=== PATIENT | female | born 1965 | race Caucasian/White ===

== ENCOUNTER 2023-09-12 21:03 | Emergency (ER) | payer OTHER, SELFPAY ==
[2023-09-12 21:08] VITALS: BP 123/69; PULSE 78; RESP 16; TEMP 36.1; O2SAT 98; BMI 32.0
--- NOTE | 2023-09-12 23:03 | CRLHL7_ITS ---
For Patients: As a result of the Century Cures Act, medical imaging exams and procedure reports are released immediately into your electronic medical record. You may view this report before your referring provider. If you have questions, please contact your health care provider. INDICATION: Foot pain, no injury, left foot pain TECHNIQUE: Foot radiograph 3 views left COMPARISON: None FINDINGS: Bone: No acute fractures or aggressive bone lesions are identified. Moderate metatarsus primus varus hallux valgus is noted with Hallux angle measuring 34 degrees. No significant bone proliferation seen over the medial eminence of 1st metatarsal head. A type III tailor`s bunion is present with the 4th-5th intermetatarsal angle measuring 12 degrees. 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 Mild osteoarthritis of the midtarsal joints are noted. No significant ankle effusion is seen. Soft tissue: There are 2 surgical clips seen along the anterior ankle. No radiopaque foreign bodies are seen. IMPRESSION: 1. No acute osseous injuries or abnormalities are noted. Dictated by Sarthak Brown MD @ 09/13/2023 12:44:41 AM Dictated by: Sarthak Brown MD @ 09/13/2023 00:44:46 (Electronically Signed)
--- NOTE | 2023-09-13 00:22 | ED.GENADULT ---
HPI - General Adult General Chief complaint: Lower Extremity Swelling Stated complaint: L foot pain, swollen Time Seen by Provider: 09/12/23 23:03 History of Present Illness HPI narrative: Patient is a 57-year-old woman who started a bike tour yesterday biking 30 miles. She has new cycling shoes and has a large bunion on the left foot. She feels like tissues are too tight and as result she is now having significant pain in the forefoot of her left foot. She is having difficult time placing weight on her foot. She has a very inflamed bunion on the medial aspect of her foot with slight ulceration. No other significant history. Patient is concerned that she may have broken her foot. Related Data Allergies Allergy/AdvReac Type Severity Reaction Status Date / Time Penicillins Allergy Intermediate Rash Verified 09/12/23 21:14 Review of Systems Status of ROS: Reports: 10 or more systems reviewed and unremarkable except as noted in History and below Exam Narrative: Exam Narrative: EXAM GENERAL: Patient appears comfortable and well. EYES: No scleral icterus. LYMPH: No supraclavicular or cervical lymphadenopathy. SKIN: Visible skin seen during exam normal or with benign process only. EXT: Examination of the left foot shows minimal swelling no erythema minor ulcerations last blister on the large bunion. No other neurovascular symptoms. HEART: Regular rate and rhythm with no murmurs, rubs, or gallops. LUNGS: Clear to auscultation bilaterally with no crackles or wheezes. ABD: Soft, non tender, non distended. PSYCH: Good eye contact, speech is not pressured. Const: Vital Signs, click to edit/add: Vital Signs - 24 hr 09/12/23 21:08 Temperature 96.9 F L Pulse Rate [Left P ulse Oximeter] 78 Respiratory Rate 16 Blood Pressure [Ri ght Upper Arm] 123/69 Pulse Oximetry 98 Oxygen Delivery Me thod Room Air Course Course ED Course: Patient seen and examined. X-ray of the left foot ordered. Vital Signs Vital signs: Initial Vital Signs Temperature 96.9 F L 09/12/23 21:08 Temperature Source Temporal Artery Scan 09/12/23 21:08 Pulse Rate 78 09/12/23 21:08 Pulse Rhythm Regular 09/12/23 21:08 Respiratory Rate 16 09/12/23 21:08 Blood Pressure 123/69 09/12/23 21:08 Blood Pressure Mean 87 09/12/23 21:08 Blood Pressure Position Sitting 09/12/23 21:08 Pulse Oximetry 98 09/12/23 21:08 Oxygen Delivery Method Room Air 09/12/23 21:08 Vital Signs Temperature 96.9 F L 09/12/23 21:08 Pulse Rate 78 09/12/23 21:08 Respiratory Rate 16 09/12/23 21:08 Blood Pressure 123/69 09/12/23 21:08 Pulse Oximetry 98 09/12/23 21:08 Oxygen Delivery Method Room Air 09/12/23 21:08 Temperature 96.9 F L 09/12/23 21:08 Pulse Rate 78 09/12/23 21:08 Respiratory Rate 16 09/12/23 21:08 Blood Pressure 123/69 09/12/23 21:08 Pulse Oximetry 98 09/12/23 21:08 Oxygen Delivery Method Room Air 09/12/23 21:08 Medical Decision Making MDM Narrative Medical decision making narrative: Patient presents with left-sided foot pain after day of riding and clip on shoes. She has impressive bunion as well as significant deformity of the left foot as result. She is not having pain in the forefoot. I do not see any fractures but do see chronic changes on her x-ray. She will be treated with Tylenol Motrin ice and rest. I also recommended for primary care follow-up with referral to Podiatry. Radiology x-ray pending. Differential diagnosis includes but not limited due sprain strain fracture dislocation infection. Discharge Plan Discharge Clinical Impression: Acute foot pain Patient Disposition: Home, Self-Care Condition: Stable Additional Instructions: Tylenol Motrin Ice Follow-up with your doctor next week. Activity Level: No Restrictions Discharge Diet: Regular Stand Alone Forms: [facility] Info Instructions
--- OUTSIDE RECORDS SUMMARY | 2023-09-13 00:47 | XMS_ITS | Clinical Summary ---
Author Organization [place] Address [address] [place] [address]. [place] [address] Care Team Providers Care Guidance Secretary Name Role Phone Jostin Kim ALLEN SEWING PATTERN LAYOUT TECHNICIAN Unavailable [phone] Kim Frankel APRN SEWING PATTERN LAYOUT TECHNICIAN Primary Care Provider [phone] Mitra Reaves BI SPECIALIST SEWING PATTERN LAYOUT TECHNICIAN Unavailable [phone] Allergies Active Allergy Reactions Criticality Noted Date Comments Amoxicillin Rash Low 08/14/2015 Low grade fever Penicillins Rash Low 08/14/2015 Low grade fever Seasonal Allergies Itching,Other (See Comments) 12/23/1989 Trace Minerals Cr-Cu-Mn-Zn Hives,Itching 12/24/1979 Medications Medication Sig Dispensed Refills Start Date End Date Status ondansetron (ZOFRAN ODT) 4 MG ODT tabIndications:Left lower quadrant pain Take 1 tablet (4 mg) by mouth every 8 hours as needed for nausea 20 tablet 1 01/15/2023 Active estradiol (ESTRACE) 0.1 MG/GM vaginal creamIndications:Va ginal atrophy Place a small pea-sized amount in the vagina nightly for two weeks, then twice weekly. Please schedule office visit for further refills. 42.5 g 02/23/2023 Active escitalopram (LEXAPRO) 10 MG tabletIndications:R ecurrent major depressive disorder, in full remission (H24) Take 1 tablet (10 mg) by mouth daily *will need appointment for additional refills* 90 tablet 08/11/2023 Active Active Problems Problem Noted Date Diagnosed Date ESTEE (acute kidney injury) (H24) 01/19/2023 Bacteremia 01/19/2023 Ureteral stone with hydronephrosis 01/19/2023 Nephrolithiasis 01/16/2023 Ureterolithiasis 01/15/2023 Urinary tract infection with hematuria, site uns pecified 01/15/2023 Moderate mixed hyperlipidemia not requiring stat in therapy 05/30/2021 Overview: 2021: ASCVD 1.8% History of bilateral knee replacement 05/24/2021 Spondylolisthesis of lumbar region 05/24/2021 Overview: TCO dx'd. MRI Doing PT and chiro Recurrent major depressive d isorder, in full remission (H24) 08/14/2015 Overview: Chronic and lifelong 2021: Lexapro, art therapy History of hysterectomy 07/07/2014 Resolved Problems Problem Noted Date Diagnosed Date Resolved Date CARDIOVASCULAR SCREENING; LD L GOAL LESS THAN 160 11/24/2016 05/24/2021 Encounters Date Type Department Care Team Description 08/10/[address] [address] Kim Frankel APRN SEWING PATTERN LAYOUT TECHNICIAN Refill Request 08/08/2023 MyC Refill [address] [address] Kim Frankel APRN SEWING PATTERN LAYOUT TECHNICIAN Refill Request from Last 3 Months Immunizations Name Administration Dates Next Due COVID-19 12+ () (Pfizer) 01/22/2023 COVID-19 Bivalent 12+ (Pfizer) 10/06/2022 DT (PEDS <7y) 03/30/2004 HEPA 09/28/2007, 8,07/03/2006,2005,11/26/2005 HepB 07/03/2006,12/31/2005,11/26/2005 Influenza (IIV3) PF 01/20/2012,01/23/2011 Influenza Vaccine 18-64 (Flublok) 12/05/2020, Influenza Vaccine >6 months,quad, PF ,12/14/2017,02/25/2017,2015 MMR 11/22/2007 Poliovirus, inactivated (IPV) 11/26/2005 TD,PF 7+ (Tenivac) 03/30/2004 TDAP (Adacel,Boostrix) 10/28/2006,03/30/2004 TDAP Vaccine (Adacel) 12/14/2017 Td (Adult), Adsorbed 10/28/2006 Typhoid IM 11/26/2005 Zoster recombinant adjuvante d (SHINGRIX) 05/24/2021 Family History Medical History Relation Comments Mental Illness Brother bipolar No Known Problems Daughter Depression Father Hyperlipidemia Father Skin Cancer Father Breast Cancer Maternal Aunt 1 maternal aunt Breast Cancer Maternal Aunt 2 Heart Disease Maternal Grandfather Osteoporosis Maternal Grandmother Hyperlipidemia Mother No Known Problems Paternal Aunt Coronary Artery Disease Paternal Grandfather Breast Cancer Paternal Grandmother Cancer Paternal Grandmother Coronary Artery Disease Paternal Grandmother Mental Illness Paternal Uncle uncle No Known Problems Sister 2 Colon Cancer No family hx of Endometrial Cancer No family hx of Glaucoma No family hx of Hereditary Breast and Ovarian Cancer Syndrome No family hx of Macular Degeneration No family hx of Ovarian Cancer No family hx of Relation Status Comments Brother Alive Daughter Father Maternal Aunt 1 Other Maternal Aunt 2 Maternal Grandfather Maternal Grandmother Mother Alive Paternal Aunt Paternal Grandfather Paternal Grandmother Paternal Uncle Other Sister 1 Alive Sister 2 Social History Tobacco Use Types Packs/Day Years Used Date Smoking Tobacco: Never Passive Smoke Exposure: Current Smokeless Tobacco: Never Tobacco Cessation:Counseling Given: Not Answered Alcohol Use Standard Drinks/Week Comments Yes 0 (1 standard drink = 0.6 oz pur e alcohol) 1/week to 1/month PHQ-2 Answer Date Recorded PHQ-2 Score 0 03/05/2023 Adolescent Education Answer Date Record ed Getting School Help Needed Not on file 12/29 Food Insecurity Answer Date Recorded Within the past 12 months, d id you worry that your food would run out before you got money to buy more? No 01/15/2023 Within the past 12 months, d id the food you bought just not last and you didn? t have money to get more? No 01/15/2023 Housing Stability Answer Date Recorded Do you have housing? Yes 01/15/2023 Are you worried about losing your housing? No 01/15/2023 Financial Resource Strain Answer Date R ecorded Within the past 12 months, h ave you or your family members you live with been unable to get utilities (heat, electricity) when it was really needed? No 01/15/2023 Transportation Needs Answer Date Record ed Within the past 12 months, h as lack of transportation kept you from medical appointments, getting your medicines, non-medical meetings or appointments, work, or from getting things that you need? No 01/15/2023 Interpersonal Safety Answer Date Record ed Do you feel physically and e motionally safe where you currently live? Yes 01/22/2023 Within the past 12 months, h ave you been hit, slapped, kicked or otherwise physically hurt by someone? No 01/22/2023 Within the past 12 months, h ave you been humiliated or emotionally abused in other ways by your partner or ex-partner? No 01/22/2023 Sex and Gender Information Value Date Recorded Sex Assigned at Female 05/03/2020 6:11 PM WILDLIFE SCIENCE PROFESSOR Gender Identity Female 05/03/2020 6:11 PM WILDLIFE SCIENCE PROFESSOR Sexual Orientation Straight 05/03/2020 6: 11 PM WILDLIFE SCIENCE PROFESSOR Last Filed Vital Signs Vital Sign Reading Time Taken Comments Blood Pressure 96/74 02/02/2023 11:02 AM WILDLIFE SCIENCE PROFESSOR Pulse 71 02/02/2023 11:15 AM WILDLIFE SCIENCE PROFESSOR Temperature 35.9 ??C (96.7 ??F) 02/02/2023 11:[address] Respiratory Rate 16 02/02/2023 11:02 AM WILDLIFE SCIENCE PROFESSOR Oxygen Saturation 92% 02/02/2023 11:15 AM WILDLIFE SCIENCE PROFESSOR Inhaled Oxygen Concentration - - Weight 76.7 kg (169 lb) 03/05/2023 8:42 AM WILDLIFE SCIENCE PROFESSOR Height 157.5 cm (5' 2) 03/05/2023 8:42 AM WILDLIFE SCIENCE PROFESSOR Body Mass Index 30.91 03/05/2023 8:42 AM WILDLIFE SCIENCE PROFESSOR Plan of Treatment Upcoming Encounters Date Type Department Care Team (Late st Contact Info) Description 10/09/2023 1:00 PM CDT [facility] [address] [place] [phone] Kim Frankel APRN SEWING PATTERN LAYOUT TECHNICIAN [address] [place] [address] Health Maintenance Due Date Last Done Comments CT COLONOGRAPHY 1966 FLEX SIG 1966 sDNA (Cologuard) 1966 IPV IMMUNIZATION (2 of 3 - Adult catch-up series) 12/24/2005 11/26/2005 FIT 02/05/2020 02/04/2019, 11/29, 12/04/2016 MAMMO SCREENING 02/05/2020 02/04/2018, 10/30, 10/15/2015, Additional history exists ZOSTER IMMUNIZATION (2 of 2) 07/19/2021 05/24/2021 PHQ-9 04/08/2023 10/06/2022, 07, 05/24/2021, Additional history exists ANNUAL REVIEW OF HM ORDERS 10/07/2023 10/06/2022, LIPID 10/07/2023 10/06/2022, 05/01, 01/25/2019, Additional history exists YEARLY PREVENTIVE VISIT 10/07/2023 10/07/19 23, 05/24/2021, 01/25/2019, Additional history exists GLUCOSE 01/22/2026 01/22/2023, 12/29, 01/18/2023, Additional history exists ADVANCE CARE PLANNING 05/24/2026 05/24/2021 , 12/24/2020, 10/15/2020 DTAP/TDAP/TD IMMUNIZATION (5 - Td or Tdap) 12/15/2027 12/14/2017, 10/28/2006, 10/28/2006, Additional history exists COLONOSCOPY 06/07/2031 06/06/2021 COLORECTAL CANCER SCREENING 06/07/2031 HEPATITIS B IMMUNIZATION Completed 007, 12/31/2005, 11/26/2005 PAP Discontinued 01/12/2009 HIV SCREENING Completed 01/25/2019 DEPRESSION ACTION PLAN Completed 05/09/2020, 2020 HEPATITIS C SCREENING Completed 05/24/2021 INFLUENZA VACCINE Completed 01/19/2023, , 01/25/2019, Additional history exists COVID-19 Vaccine Completed 01/22/2023, 12/2022, 11/01/2021, Additional history exists HPV IMMUNIZATION Aged Out No longer e ligible based on patient's age to complete this topic MENINGITIS IMMUNIZATION Aged Out No l onger eligible based on patient's age to complete this topic Pneumococcal Vaccine: Pediatrics (0 to 5 Years) and At-Risk Patients (6 to 64 Years) Aged Out No longer eligible based on patient's age to complete this topic RSV MONOCLONAL ANTIBODY Aged Out No l onger eligible based on patient's age to complete this topic Medical Devices Implanted Type Area Psych Assistant Device Identifier Shelf Expiration Date Model / Serial / Lot Stent, Ureteral, 4.8fr X 24cm, Hydroplus Coating, Without Wire, Percuflex Plus - [id number] Implanted:Qty: 1 on 02/02/2023 by Alton Reynolds MD at [facility] Stent Left: Ureter 09/30/2025 [id number] / / [id number] Explanted Type Area Psych Assistant Device Identifier Shelf Expiration Date Model / Serial / Lot Stent Ureteral Percuflex Plus [id number] - Sn/A Implanted:Qty: 1 on 01/16/2023 by Batsheva Myers MD at [facility] Explanted:Qty: 1 on 02/02/2023 by Alton Reynolds MD at [facility] Stent [employer] [id number] 07/08/2025 [id number] / N/A / [id number] Procedures Procedure Name Priority Date/Time Associated Diagnosis Comments BASIC METABOLIC PANEL Routine 01/22/2023 12:07 PM CDT Preop general physical exam LIPID REFLEX TO DIRECT LDL PANEL Routine 10/06/2022 3:28 PM CDT Moderate mixed hyperlipidemia not requiring statin therapy COLONOSCOPY - HIM SCAN 06/06/2021 12:00 AM WILDLIFE SCIENCE PROFESSOR HEPATITIS C SCREEN REFLEX TO HCV RNA QUANT AND GENOTYPE Routine 05/24/2021 2:16 PM WILDLIFE SCIENCE PROFESSOR Need for hepatitis C screening test FECAL COLORECTAL CANCER SCREEN FIT Routine 02/04/2019 8:00 AM WILDLIFE SCIENCE PROFESSOR Screen for colon cancer HIV ANTIGEN ANTIBODY COMBO Routine 01/25/2019 3:23 PM CDT Well adult health check MA SCREENING BILATERAL W/ CLIVE Routine 02/04/2018 8:47 AM WILDLIFE SCIENCE PROFESSOR Encounter for screening mammogram for breast cancer GYNECOLOGIC CYTOLOGY Routine 01/12/2009 8:55 AM CDT from Last 3 Months or Most Recently Relevant to Health Maintenance Results * Basic metabolic panel (Ca, Cl, CO2, Creat, Gluc, K, Na, BUN) (01/22/2023 12:07 PM CDT) Pathologist [facility] Sodium 137 135 - 145 mmol/L 01/23/2023 9:16 AM CDT [facility] Comment:Reference intervals for this test were updated on 12/23/2022 to more accurately reflect our healthy population. There may be differences in the flagging of prior results with similar values performed with this method. Interpretation of those prior results can be made in the context of the updated reference intervals. Potassium 5.0 3.4 - 5.3 mmol/L 01/23/2023 9:16 AM CDT [facility] Chloride 102 98 - 107 mmol/L 01/23/2023 9:16 AM CDT [facility] Carbon Dioxide (CO2) 22 22 - 29 mmol/L 01/23/2023 9:16 AM CDT [facility] Anion Gap 13 7 - 15 mmol/L 01/23/2023 9:16 AM CDT [facility] Urea Nitrogen 13.6 6.0 - 20.0 mg/dL 01/23/2023 9:16 AM CDT [facility] Creatinine 0.94 0.51 - 0.95 mg/dL 01/23/2023 9:16 AM CDT [facility] GFR Estimate 71 >60 mL/min/1. 73m2 01/23/2023 9:16 AM CDT [facility] Calcium 9.0 8.6 - 10.0 mg/dL 01/23/2023 9:16 AM CDT [facility] Glucose 92 70 - 99 mg/dL 01/23/2023 9:16 AM CDT [facility] Blood BLOOD SPECIMEN / Unknown Venipuncture / Unknown 01/22/2023 12:07 PM CDT 01/22/2023 12:07 PM CDT William Tesfaye MD LAB - BLOOD ORDERABL ES [facility] Core Lab [address] [facility], [address] [address], [facility] [phone] * (ABNORMAL) Lipid panel reflex to direct LDL Non-fasting (10/06/2022 3:28 PM CDT) Cholesterol 214(H) <200 mg/dL 10/06/2022 8:51 PM CDT [facility] Triglycerides 180(H) <150 mg/dL 10/06/2022 8:51 PM CDT [facility] Direct Measure HDL 35(L) >=50 mg/dL 10/06/2022 8:51 PM CDT [facility] LDL Cholesterol Calculated 143(H) <=100 mg/dL 10/06/2022 8:51 PM CDT [facility] Non HDL Cholesterol 179(H) <130 mg/dL 10/06/2022 8:51 PM CDT [facility] Blood BLOOD SPECIMEN / Unknown Venipuncture / Unknown 10/06/2022 3:28 PM CDT 10/06/2022 3:28 PM CDT Narrative [facility] - 10/06/2022 8:51 PM CDT Cholesterol Desirable: ??<200 mg/dL Triglycerides Normal: ??Less than 150 mg/dL Borderline High: ??150-199 mg/dL High: ??200-499 mg/dL Very High: ??Greater than or equal to 500 mg/dL Direct Measure HDL Female: ??Greater than or equal to 50 mg/dL Male: ??Greater than or equal to 40 mg/dL LDL Cholesterol Desirable: ??<100mg/dL Above Desirable: ??100-129 mg/dL Borderline High: ??130-159 mg/dL High: ??160-189 mg/dL Very High: ??>= 190 mg/dL Non HDL Cholesterol Desirable: ??130 mg/dL Above Desirable: ??130-159 mg/dL Borderline High: ??160-189 mg/dL High: ??190-219 mg/dL Very High: ??Greater than or equal to 220 mg/dL Kim Frankel APRN, CNP LAB - BLOOD ORDERAB LES [facility] [place] Core Lab [address] [facility], [address] [address], [facility] [phone] * COLONOSCOPY - HIM SCAN (06/06/2021 12:00 AM WILDLIFE SCIENCE PROFESSOR) 06/06/2021 Provider Outside PROCEDURES * Hepatitis C Screen Reflex to HCV RNA Quant and Genotype (05/24/2021 2:16 PM WILDLIFE SCIENCE PROFESSOR) Pathologist [facility] Hepatitis C Antibody Nonreactive Nonreactive 05/25/2021 9:43 AM WILDLIFE SCIENCE PROFESSOR SPECIALTY CORE/PROT/EN DO Blood STRUCTURE OF RIGHT UPPER LIMB / Unknown Venipuncture / Unknown 05/24/2021 2:16 PM WILDLIFE SCIENCE PROFESSOR 05/24/2021 2:16 PM WILDLIFE SCIENCE PROFESSOR Narrative SPECIALTY CORE/PROT/ENDO - 05/25/2021 9:43 AM WILDLIFE SCIENCE PROFESSOR Assay performance characteristics have not been established for newborns, infants, and children. Trish Mendoza MD LAB - BLOOD ORDERAB LES Performing Organization Address City/[facility]/ZIP Co de Phone Number SPECIALTY CORE/PROT/ENDO Specialty Core/Prot/Endo [address] [facility] [address] [facility], [address] [address], [facility] [phone] * Fecal colorectal cancer screen FIT - Future (S+30) (02/04/2019 8:00 AM WILDLIFE SCIENCE PROFESSOR) Pathologist [facility] Occult Blood Scn FIT Negative NEG^Negati ve 02/11/2019 6:10 PM WILDLIFE SCIENCE PROFESSOR [facility] Stool specimen (specimen) 02/04/2019 8:00 AM WILDLIFE SCIENCE PROFESSOR 02/11/2019 1:44 PM WILDLIFE SCIENCE PROFESSOR Feli Smith APRN SEWING PATTERN LAYOUT TECHNICIAN LAB - STOOLS ORDERABLES [facility] [address] [place] [address] * HIV Screening (01/25/2019 3:23 PM CDT) HIV Antigen Antibody Combo Nonreactive NR^Nonrea ctive 01/26/2019 12:02 PM CDT [facility] Comment:HIV-1 p24 Ag & HIV-1 /HIV-2 Ab Not Detected Blood specimen (specimen) 01/25/2019 3:23 PM CDT 01/25/2019 3:24 PM CDT Feli Smith BI SPECIALIST SEWING PATTERN LAYOUT TECHNICIAN LAB - BLOOD ORDERABLES [address] [address] * MA Screen Bilateral w/Clive (02/04/2018 8:47 AM WILDLIFE SCIENCE PROFESSOR) Anatomical Region Laterality Modality Breast Bilateral Mammography Impressions 02/05/2018 2:36 PM WILDLIFE SCIENCE PROFESSOR IMPRESSION: BI-RADS CATEGORY: 1 - ??NEGATIVE. RECOMMENDED FOLLOW-UP: Annual Mammography Based on the patient history questionnaire completed prior to the mammogram, the NCI risk calculator and the NCCN indications for genetic screening, the patient may be at an increased risk for breast cancer and/or have an indication for genetic screening. ??She has been sent a letter informing her of this and a phone number to schedule an appointment in the [facility] if she so desires. Results to be sent to patient. I have personally reviewed the examination and initial interpretation and I agree with the findings. MOISES BRITT MD Narrative 02/05/2018 2:36 PM WILDLIFE SCIENCE PROFESSOR SCREENING MAMMOGRAM, BILATERAL, DIGITAL, with CAD and TOMOSYNTHESIS HISTORY: Asymptomatic, routine screening. History of prior breast biopsy. History of 2 close relatives with breast cancer, the youngest diagnosed at age 45. Previously documented breast cysts. COMPARISON: 11/26/2016, 10/15/2015, 08/21/2015, 05/30/2014, 03/05/2011, 06/05/2010 TECHNIQUE: Routine screening mammogram with CAD and tomosynthesis. BREAST DENSITY: Heterogeneously dense. FINDINGS: No significant change. Procedure Note Moises Britt MD - 02/05/2018 SCREENING MAMMOGRAM, BILATERAL, DIGITAL, with CAD and TOMOSYNTHESIS HISTORY: Asymptomatic, routine screening. History of prior breast biopsy. History of 2 close relatives with breast cancer, the youngest diagnosed at age 45. Previously documented breast cysts. COMPARISON: 11/26/2016, 10/15/2015, 08/21/2015, 05/30/2014, 03/05/2011, 06/05/2010 TECHNIQUE: Routine screening mammogram with CAD and tomosynthesis. BREAST DENSITY: Heterogeneously dense. FINDINGS: No significant change. IMPRESSION: BI-RADS CATEGORY: 1 - NEGATIVE. RECOMMENDED FOLLOW-UP: Annual Mammography Based on the patient history questionnaire completed prior to the mammogram, the NCI risk calculator and the NCCN indications for genetic screening, the patient may be at an increased risk for breast cancer and/or have an indication for genetic screening. She has been sent a letter informing her of this and a phone number to schedule an appointment in the [facility] if she so desires. Results to be sent to patient. I have personally reviewed the examination and initial interpretation and I agree with the findings. MOISES BRITT MD Feli Smith APRN SEWING PATTERN LAYOUT TECHNICIAN IMG MAMMOGRA PHY ORDERABLES * Gynecologic Cytology (PAP Smear) (01/12/2009 8:55 AM CDT) 01/12/2009 8:55 AM CDT 01/12/2009 8:55 AM CDT [facility] - 01/12/2009 8:55 AM CDT [id number] ? Slide(s) 1 Specimen Type: ??SUREPATH SCREEN SOURCE: VAGINAL PAP SMEAR INTERPRETATION: NEGATIVE FOR SQUAMOUS INTRAEPITHELIAL LESION OR MALIGNANCY Based on Pap interpretation, HPV reflex test not performed. No Endocervical Cells Present; Vaginal Source Satisfactory for Interpretation PATIENT HISTORY Reflex HPV.................: YES IF ABNORMAL High Risk..................: NO LMP/Menopause Date.........: unknown Abnormal Bleeding:.........: NO Pt Status..................: NOT APPLICABLE Control/Hormones.....: NONE Previous Normal/Date.......: 2005 Prev. Abn Date/Dx..........: Cervical Appearance........: S. [place] CT(ASCP) ? (electronically signed) Performed at: ??[facility] [address] [place] [address] Date Received: 01/12/09 ?Date Completed: 01/18/09 ??ABN Complete: [facility] [address] [place] [id number], [facility] [address] [place] [id number] from Last 3 Months or Most Recently Relevant to Health Maintenance Advance Directives For more information, please contact: [phone] * Full Code (Latest Code Status on File) Date Activated Date Inactivated Comments 01/16/2023 8:40 AM 01/19/2023 3:19 PM All basic and advanced life-sustaining interventions are performed as appropriate Question Answer Comments Code status determined by: Discussion with cecily nt/ legal decision maker * Full Code Date Activated Date Inactivated Comments 01/15/2023 11:23 PM 01/16/2023 8:40 AM All basic and advanced life-sustaining interventions are performed as appropriate Question Answer Comments Code status determined by: Discussion with patie nt/ legal decision maker Care Teams Guidance Secretary Relationship Specialty Start Date End Date Kim Frankel APRN SEWING PATTERN LAYOUT TECHNICIAN [address] [place] [address] PCP - General Nurse Practitioner Primary Care 01/15/23 iKm Frankel APRN SEWING PATTERN LAYOUT TECHNICIAN [address] [place] [address] Assigned PCP 11/22/22 Mitra Reaves APRN SEWING PATTERN LAYOUT TECHNICIAN [address] [place] [address], [facility] [address] [place] [address] Assigned Surgical Provider 04/23/23
--- OUTSIDE RECORDS SUMMARY | 2023-09-13 00:48 | XMS_ITS | Encounter Summary ---
Author Organization [facility] Address [address] [place] [address]. [place] [address] Care Team Providers Care Web Coordinator Name Role Phone Trish Mendoza MD Primary Care Provider [phone] Trish Mendoza MD Unavailable [phone] Kim Frankel APRN CLAIMS ASSISTANT Unavailable [phone] Kim Frankel APRN, CNP Primary Care Provider [phone] Kim Frankel APRN CLAIMS ASSISTANT Unavailable [phone] Mitra Reaves INFORMATION SYSTEMS TECHNICIAN CLAIMS ASSISTANT Unavailable [phone] Encounter Details Date Type Department Care Team (Late st Contact Info) Description 07/04/2022 MyC Medical Advice [address] [address] Caterina Burroughs, CIELO Social History Tobacco Use Types Packs/Day Years Used Date Smoking Tobacco: Never Smokeless Tobacco: Never Alcohol Use Standard Drinks/Week Comments Yes 0 (1 standard drink = 0.6 oz pur e alcohol) 1/week to 1/month PHQ-2 Answer Date Recorded PHQ-2 Score 2 05/24/2021 Sex and Gender Information Value Date Recorded Sex Assigned at Female 05/03/2020 6:11 PM LINING CEMENTER Gender Identity Female 05/03/2020 6:11 PM LINING CEMENTER Sexual Orientation Straight 05/03/2020 6: 11 PM LINING CEMENTER documented as of this encounter Plan of Treatment Upcoming Encounters Date Type Department Care Team (Late st Contact Info) Description 10/09/2023 1:00 PM CDT Office Visit [facility] [address] [place] [address] Kim Frankel APRN CLAIMS ASSISTANT [address] [place] [address] documented as of this encounter Visit Diagnoses Not on filedocumented in this encounter Additional Health Concerns Infection Onset Date Last Indicated Resolved Time Rule Out C-difficile 01/22/2023 01/24/2023 023 4:38 PM CDT Assessment Noted Time PHQ-9 Depression Total Score: 5 05/25/19 22 7:02 AM LINING CEMENTER documented as of this encounter Care Teams Web Coordinator Relationship Specialty Start Date End Date Trish Mendoza MD PCP - General Family Medicine 05/24/21 01/14/23 Kim Frankel APRN CLAIMS ASSISTANT [address] [place] [address] PCP - General Nurse Practitioner Primary Care 01/15/23 Trish Mendoza MD [address] [place] [id number] Assigned PCP 06/02/21 11/21/22 Kim Frankel APRN CLAIMS ASSISTANT [address] [place] [address] Assigned PCP 11/22/22 Kim Frankel APRN CLAIMS ASSISTANT [address] [place] [address] Assigned Pain Medication Provider 01/17/23 04/22/23 Mitra Reaves APRN CLAIMS ASSISTANT [address] [place] [address], [facility] [address] [place] [address] Assigned Surgical Provider 04/23/23 documented as of this encounter
--- OUTSIDE RECORDS SUMMARY | 2023-09-13 00:48 | XMS_ITS | Encounter Summary ---
Author Organization [facility] Address [address] [place] [address]. [place] [address] Care Team Providers Care Bulb Inspector Name Role Phone Feli Holguin MD Unavailable [phone] Trish Mendoza MD Primary Care Provider Trish Mendoza MD Unavailable Kim Frankel APRN SCORING MACHINE OPERATOR Unavailable Kim Frankel APRN SCORING MACHINE OPERATOR Primary Care Provider Kim Frankel APRN SCORING MACHINE OPERATOR Unavailable [phone] Mitra Reaves PHOTOGRAPH DEVELOPER SCORING MACHINE OPERATOR Unavailable [phone] Encounter Details Date Type Department Care Team (Late st Contact Info) Description 09/17/2021 [facility] Medical Advice [facility] [address] [place] [phone] Trish Mendoza MD [address] [address] Social History Tobacco Use Types Packs/Day Years Used Date Smoking Tobacco: Never Smokeless Tobacco: Never Alcohol Use Standard Drinks/Week Comments Yes 0 (1 standard drink = 0.6 oz pur e alcohol) 1/week to 1/month PHQ-2 Answer Date Recorded PHQ-2 Score 2 05/24/2021 Sex and Gender Information Value Date Recorded Sex Assigned at Female 05/03/2020 6:11 PM TOLL MECHANIC Gender Identity Female 05/03/2020 6:11 PM TOLL MECHANIC Sexual Orientation Straight 05/03/2020 6: 11 PM TOLL MECHANIC documented as of this encounter Plan of Treatment Upcoming Encounters Date Type Department Care Team (Late st Contact Info) Description 10/09/2023 1:00 PM CDT Office Visit [facility] [place] [address]0 [place] [address] Kim Frankel APRN SCORING MACHINE OPERATOR 1390 [place] [address] documented as of this encounter Visit Diagnoses Not on filedocumented in this encounter Additional Health Concerns Infection Onset Date Last Indicated Resolved Time Rule Out C-difficile 01/22/2023 01/24/2023 023 4:38 PM CDT Assessment Noted Time PHQ-9 Depression Total Score: 5 05/25/19 7:02 AM TOLL MECHANIC documented as of this encounter Care Teams Bulb Inspector Relationship Specialty Start Date End Date Trish Mendoza MD [address] [place] [address] [address] [place] [address] PCP - General Family Medicine 05/24/21 01/14/23 Kim Frankel APRN SCORING MACHINE OPERATOR [address] [place] [address] PCP - General Nurse Practitioner Primary Care 01/15/23 Feli Holguin MD [address] [place] [address] [address] [place] [address] Assigned OBGYN Provider 08/19/20 02/14/22 Trish Mendoza MD 2[address] [facility] 200 [place] [address] Assigned PCP 06/02/21 11/21/22 Kim Frankel APRN SCORING MACHINE OPERATOR [address] [place] [address] Assigned PCP 11/22/22 Kim Frankel APRN SCORING MACHINE OPERATOR [address] [place], [place] [id number] Assigned Pain Medication Provider 01/17/23 04/22/23 Mitra Reaves APRN SCORING MACHINE OPERATOR [address] [place] [address], [facility] [address] [place] [address] Assigned Surgical Provider 04/23/23 documented as of this encounter
--- OUTSIDE RECORDS SUMMARY | 2023-09-13 00:48 | XMS_ITS | Encounter Summary ---
Author Organization [facility] Address [address] [place] [address]. [place] [address] Care Team Providers Care Home Lighting Adviser Name Role Phone Feli Holguin MD Unavailable [phone] Trish Mendoza MD Primary Care Provider Trish Mendoza MD Unavailable [phone] Kim Frankel APRN DIRECTOR PROJECT MANAGEMENT Unavailable [phone] Kim Frankel APRN DIRECTOR PROJECT MANAGEMENT Primary Care Provider Kim Frankel APRN DIRECTOR PROJECT MANAGEMENT Unavailable [phone] Mitra Reaves HEAVY EQUIPMENT OPERATOR DIRECTOR PROJECT MANAGEMENT Unavailable [phone] Encounter Details Date Type Department Care Team (Late st Contact Info) Description 08/27/2021 [facility] [address] [phone] Cierra Gillis MA Social History Tobacco Use Types Packs/Day Years Used Date Smoking Tobacco: Never Smokeless Tobacco: Never Alcohol Use Standard Drinks/Week Comments Yes 0 (1 standard drink = 0.6 oz pur e alcohol) 1/week to 1/month PHQ-2 Answer Date Recorded PHQ-2 Score 2 05/24/2021 Sex and Gender Information Value Date Recorded Sex Assigned at Female 05/03/2020 6:11 PM TRAINING AND DOCUMENTATION SPECIALIST Gender Identity Female 05/03/2020 6:11 PM TRAINING AND DOCUMENTATION SPECIALIST Sexual Orientation Straight 05/03/2020 6: 11 PM TRAINING AND DOCUMENTATION SPECIALIST documented as of this encounter Plan of Treatment Upcoming Encounters Date Type Department Care Team (Late st Contact Info) Description 10/09/2023 1:00 PM CDT Office Visit [facility] [address] [place] [address] Kim Frankel APRN DIRECTOR PROJECT MANAGEMENT [address] [place] [address] documented as of this encounter Visit Diagnoses Not on filedocumented in this encounter Additional Health Concerns Infection Onset Date Last Indicated Resolved Time Rule Out C-difficile 01/22/2023 01/24/2023 023 4:38 PM CDT Assessment Noted Time PHQ-9 Depression Total Score: 5 05/25/19 22 7:02 AM TRAINING AND DOCUMENTATION SPECIALIST documented as of this encounter Care Teams Home Lighting Adviser Relationship Specialty Start Date End Date Trish Mendoza MD [address] [facility] 700 [place] [address] PCP - General Family Medicine 05/24/21 01/14/23 Kim Frankel APRN DIRECTOR PROJECT MANAGEMENT 139[address] [place] [address] PCP - General Nurse Practitioner Primary Care 01/15/23 Feli Holguin MD [address] [facility] 700 [place] [address] Assigned OBGYN Provider 08/19/20 02/14/22 Trish Mendoza MD [address] [facility] 200 [place] [address] Assigned PCP 06/02/21 11/21/22 Kim Frankel APRN DIRECTOR PROJECT MANAGEMENT [address] [place] [address] Assigned PCP 11/22/22 Kim Frankel APRN DIRECTOR PROJECT MANAGEMENT [address] [place] [address] Assigned Pain Medication Provider 01/17/23 04/22/23 Mitra Reaves, TIFFANY DIRECTOR PROJECT MANAGEMENT [address] [place] [address], [facility] [address] [place] [address] Assigned Surgical Provider 04/23/23 documented as of this encounter
--- OUTSIDE RECORDS SUMMARY | 2023-09-13 00:48 | XMS_ITS | Encounter Summary ---
Author Organization [facility] Address [address] [place] [address]. [place] [address] Care Team Providers Care Plisse Machine Operator Helper Name Role Phone Feli Holguin MD Unavailable [phone] Lakia Lima CNP Unavailable Trish Mendoza MD Primary Care Provider [phone] Trish Mendoza MD Unavailable [phone] Kim Frankel APRN HUNTING SALES LEADER Unavailable Kim Frankel APRN HUNTING SALES LEADER Primary Care Provider Kim Frankel APRN HUNTING SALES LEADER Unavailable [phone] Mitra Reaves APRN HUNTING SALES LEADER Unavailable [phone] Encounter Details Date Type Department Care Team (Late st Contact Info) Description 05/31/2021 [facility] Medical Advice [facility] [address] [facility] [address] [place] [phone] Marium Cai, CIELO Social History Tobacco Use Types Packs/Day Years Used Date Smoking Tobacco: Never Smokeless Tobacco: Never Alcohol Use Standard Drinks/Week Comments Yes 0 (1 standard drink = 0.6 oz pur e alcohol) 1/week to 1/month PHQ-2 Answer Date Recorded PHQ-2 Score 2 05/24/2021 Sex and Gender Information Value Date Recorded Sex Assigned at Female 05/03/2020 6:11 PM DYE MACHINE OPERATOR Gender Identity Female 05/03/2020 6:11 PM DYE MACHINE OPERATOR Sexual Orientation Straight 05/03/2020 6: 11 PM DYE MACHINE OPERATOR COVID-19 Exposure Response Date Recorded In the last month, have you been in contact with someone who was confirmed or suspected to have Coronavirus / COVID-19? No / Unsure 06/03/2021 10:35 AM DYE MACHINE OPERATOR documented as of this encounter Plan of Treatment Upcoming Encounters Date Type Department Care Team (Late st Contact Info) Description 10/09/2023 1:00 PM CDT Office Visit [facility] [address] [place] [address] Kim Frankel APRN HUNTING SALES LEADER [address] [place] [address] documented as of this encounter Visit Diagnoses Not on filedocumented in this encounter Additional Health Concerns Infection Onset Date Last Indicated Resolved Time Rule Out C-difficile 01/22/2023 01/24/2023 023 4:38 PM CDT Assessment Noted Time PHQ-9 Depression Total Score: 5 05/25/19 22 7:02 AM DYE MACHINE OPERATOR documented as of this encounter Care Teams Plisse Machine Operator Helper Relationship Specialty Start Date End Date Trish Mendoza MD 1415 [place] [address] PCP - General Family Medicine 05/24/21 01/14/23 Kim Frankel APRN HUNTING SALES LEADER 139[address] [place] [address] PCP - General Nurse Practitioner Primary Care 01/15/23 Feli Holguin MD [address] [facility] 700 [place], [place] [address] Assigned OBGYN Provider 08/19/20 02/14/22 Lakia Lima CNP 14[address] [place] [address] Assigned PCP 03/24/21 06/01/21 Trish Mendoza MD [address] [address] Assigned PCP 06/02/21 11/21/22 Kim Frankel APRN HUNTING SALES LEADER [address] [place] [address] Assigned PCP 11/22/22 Kim Frankel APRN HUNTING SALES LEADER [address] [place] [address] Assigned Pain Medication Provider 01/17/23 04/22/23 Mitra Reaves APRN HUNTING SALES LEADER [address] [place] [address], [facility] 6[address] [place] [address] Assigned Surgical Provider 04/23/23 documented as of this encounter
--- OUTSIDE RECORDS SUMMARY | 2023-09-13 00:48 | XMS_ITS | Encounter Summary ---
Author Organization [facility] Address [address] [place] [address]. [place] [address] Care Team Providers Care Adoption Social Worker Name Role Phone Jostin Kim ALLEN DISPATCH ASSOCIATE Unavailable [phone] Kim Frankel APRN DISPATCH ASSOCIATE Primary Care Provider [phone] Kim Frankel APRN DISPATCH ASSOCIATE Unavailable [phone] Mitra Reaves CUSTOMER SUPPORT PROFESSIONAL DISPATCH ASSOCIATE Unavailable Encounter Details Date Type Department Care Team (Late st Contact Info) Description 01/31/2023 [facility] Medical Advice [address] [address] Andrés Garvey MD [address] [place] [id number] Social History Tobacco Use Types Packs/Day Years Used Date Smoking Tobacco: Never Passive Smoke Exposure: Current Smokeless Tobacco: Never Alcohol Use Standard Drinks/Week Comments Yes 0 (1 standard drink = 0.6 oz pur e alcohol) 1/week to 1/month PHQ-2 Answer Date Recorded PHQ-2 Score 0 10/06/2022 Adolescent Education Answer Date Record ed Getting [...] Sex Assigned at Female 05/03/2020 6:11 PM KILN PACKER Gender Identity Female 05/03/2020 6:11 PM KILN PACKER Sexual Orientation Straight 05/03/2020 6: 11 PM KILN PACKER documented as of this encounter Miscellaneous Notes * Telephone Encounter - Veronique Cardoso CMA - 02/03/2023 6:41 AM KILN PACKER FYI PACKER documented in this encounter Plan of Treatment Upcoming Encounters Date Type Department Care Team (Late st Contact Info) Description 10/09/2023 1:00 PM CDT Office Visit [facility] [address] [place] [address] Kim Frankel APRN [facility] [address] [place] [address] documented as of this encounter Visit Diagnoses Not on filedocumented in this encounter Additional Health Concerns Assessment Noted Time PHQ-9 Depression Total Score: 0 10/07/19 23 1:58 PM CDT documented as of this encounter Care Teams Adoption Social Worker Relationship Specialty Start Date End Date Kim Frankel APRN DISPATCH ASSOCIATE [address] [place] [address] PCP - General Nurse Practitioner Primary Care 01/15/23 Kim Frankel APRN DISPATCH ASSOCIATE [address] [place] [address] Assigned PCP 11/22/22 Kim Frankel APRN DISPATCH ASSOCIATE [address] [place] [address] Assigned Pain Medication Provider 01/17/23 04/22/23 Mitra Reaves APRN DISPATCH ASSOCIATE [address] [place] [address], [facility] [address] [place], [place] [address] Assigned Surgical Provider 04/23/23 documented as of this encounter
--- OUTSIDE RECORDS SUMMARY | 2023-09-13 00:48 | XMS_ITS | Encounter Summary ---
Author Organization [facility] Address [address] [place] [address]. [place] [address] Care Team Providers Care Pilot Boat Operator Name Role Phone Kim Frankel APRN PHOTOGRAPH PRINTER Unavailable [phone] Kim Frankel APRN PHOTOGRAPH PRINTER Primary Care Provider [phone] Kim Frankel APRN PHOTOGRAPH PRINTER Unavailable [phone] Mitra Reaves FIELD SALES TRAINER PHOTOGRAPH PRINTER Unavailable [phone] Encounter Details Date Type Department Care Team (Late st Contact Info) Description 02/16/2023 External Order Results [facility] [address] [place] [address] Outside, Provider Social History Tobacco Use Types Packs/Day Years [...] Sex Assigned at Female 05/03/2020 6:11 PM WOOD CABINETMAKER Gender Identity Female 05/03/2020 6:11 PM WOOD CABINETMAKER Sexual Orientation Straight 05/03/2020 6: 11 PM WOOD CABINETMAKER documented as of this encounter Plan of Treatment Upcoming Encounters Date Type Department Care Team (Late st Contact Info) Description 10/09/2023 1:00 PM CDT Office Visit [facility] [address] [place] [phone] Kim Frankel APRN [facility] [address] [place] [address] documented as of this encounter Procedures Procedure Name Priority Date/Time Associated Diagnosis Comments EXTERNAL LAB RESULTS Routine 02/16/2023 10:28 AM WOOD CABINETMAKER documented in this encounter Results * (ABNORMAL) External Lab Results (02/16/2023 10:28 AM WOOD CABINETMAKER) Scan Lab Results (External) See Scanned Report(A) NON-INTERFACE D (ONBASE SCANS) Comment:Litholink 24Hr Urine Panel 02/16/2023 10:2 8 AM WOOD CABINETMAKER Narrative CHARLENE PFT - 02/26/2023 5:53 AM WOOD CABINETMAKER Verified by Prashanth Prince 02/26/2023. Alton Reynolds MD LABORATORY BREEZ[facility]annon PFT NON-INTERFACED (ONBASE SCANS) documented in this encounter Visit Diagnoses Not on filedocumented in this encounter Additional Health Concerns Assessment Noted Time PHQ-9 Depression Total Score: 0 10/07/19 1:58 PM CDT documented as of this encounter Care Teams Pilot Boat Operator Relationship Specialty Start Date End Date Kim Frankel APRN PHOTOGRAPH PRINTER [address] [place] [address] PCP - General Nurse Practitioner Primary Care 01/15/23 Kim Frankel APRN PHOTOGRAPH PRINTER [address] [place] [address] Assigned PCP 11/22/22 Kim Frankel APRN PHOTOGRAPH PRINTER [address] [place] [address] Assigned Pain Medication Provider 01/17/23 04/22/23 Mitra Reaves APRN PHOTOGRAPH PRINTER [address] [place] [address], [facility] [address] [place] [address] Assigned Surgical Provider 04/23/23 documented as of this encounter
--- OUTSIDE RECORDS SUMMARY | 2023-09-13 00:48 | XMS_ITS | Encounter Summary ---
Author Organization [facility] Address [address] [place] [address]. [place] [address] Care Team Providers Care Analytical Lab Analyst Name Role Phone Jostin Kim ALLEN ASSET PROTECTION LEAD Unavailable [phone] Kim Frankel APRN ASSET PROTECTION LEAD Primary Care Provider [phone] Kim Frankel APRN ASSET PROTECTION LEAD Unavailable [phone] Mitra Reaves COMMERCIAL LENDING ASSISTANT ASSET PROTECTION LEAD Unavailable [phone] Encounter Details Date Type Department Care Team (Late st Contact Info) Description 02/12/2023 Telephone [facility] [place] [address] [facility] [address] [place] [address] Alton Reynolds MD [address] [place] [address] Social History Tobacco Use Types Packs/Day Years [...] Sex Assigned at Female 05/03/2020 6:11 PM MANAGER OF ENVIRONMENTAL SERVICES Gender Identity Female 05/03/2020 6:11 PM MANAGER OF ENVIRONMENTAL SERVICES Sexual Orientation Straight 05/03/2020 6: 11 PM MANAGER OF ENVIRONMENTAL SERVICES documented as of this encounter Miscellaneous Notes * Telephone Encounter - Sylvia Bernstein RN - 02/12/2023 2:27 PM MANAGER OF ENVIRONMENTAL SERVICES RNTITO called pt to discuss the 24 hour urine. Only needs to do one kit and she received 2. Advised pt that she will need a follow up and Renal US. Scheduling to reach out to her on this. She will callif has not heard from them by end of next week [facility] GER OF ENVIRONMENTAL SERVICES * Telephone Encounter - Veronique Renée - 02/12/2023 1:12 PM CST [facility] Phone Message May a detailed message be left on voicemail: yes Reason for Call: Pt calling about medication and the lytholink kit she received. Please call pt to discuss. Thank you Action Taken: Message routed to: Other: [facility] Travel Screening: Not Applicable GER OF ENVIRONMENTAL SERVICES documented in this encounter Plan of Treatment Upcoming Encounters Date Type Department Care Team (Late st Contact Info) Description 10/09/2023 1:00 PM CDT Office Visit [facility] [address] [place] [address] Kim Frankel APRN ASSET PROTECTION LEAD [address] [place] [address] documented as of this encounter Visit Diagnoses Not on filedocumented in this encounter Additional Health Concerns Assessment Noted Time PHQ-9 Depression Total Score: 0 10/07/19 1:58 PM CDT documented as of this encounter Care Teams Analytical Lab Analyst Relationship Specialty Start Date End Date Kim Frankel APRN ASSET PROTECTION LEAD [address] [place] [address] PCP - General Nurse Practitioner Primary Care 01/15/23 Kim Frankel APRN ASSET PROTECTION LEAD [address] [place] [address] Assigned PCP 11/22/22 Kim Frankel APRN ASSET PROTECTION LEAD [address] [place] [address] Assigned Pain Medication Provider 01/17/23 04/22/23 Mitra Reaves APRN ASSET PROTECTION LEAD [address] [place] [address], [facility] [address] [place], [place] [address] Assigned Surgical Provider 04/23/23 documented as of this encounter
--- OUTSIDE RECORDS SUMMARY | 2023-09-13 00:48 | XMS_ITS | Encounter Summary ---
Author Organization [facility] Address [address] [place] [address]. [place] [address] Care Team Providers Care Delivery Rep Name Role Phone Feli Smith APRN, CNP Primary Care Provid er Feli Holguin MD Unavailable [phone] Lakia Lima FAMILY SPECIALIST Unavailable Trish Mendoza MD Primary Care Provider [phone] Trish Mendoza MD Unavailable [phone] Kim Frankel APRN FAMILY SPECIALIST Unavailable [phone] Kim Frankel APRN, CNP Primary Care Provider Kim Frankel APRN FAMILY SPECIALIST Unavailable Mitra Reaves FINANCE MANAGER FAMILY SPECIALIST Unavailable [phone] Encounter Details Date Type Department Care Team (Late st Contact Info) Description 04/11/2021 [facility] Medical Advice [address] [phone] Peyton Cornejo Social History Tobacco Use Types Packs/Day Years Used Date Smoking Tobacco: Never Smokeless Tobacco: Never Alcohol Use Standard Drinks/Week Comments Yes 0 (1 standard drink = 0.6 oz pur e alcohol) 1/week to 1/month PHQ-2 Answer Date Recorded PHQ-2 Score 2 11/07/2019 Sex and Gender Information Value Date Recorded Sex Assigned at Female 05/03/2020 6:11 PM HEADMASTER/MISTRESS Gender Identity Female 05/03/2020 6:11 PM HEADMASTER/MISTRESS Sexual Orientation Straight 05/03/2020 6: 11 PM HEADMASTER/MISTRESS documented as of this encounter Plan of Treatment Upcoming Encounters Date Type Department Care Team (Late st Contact Info) Description 10/09/2023 1:00 PM CDT Office Visit [facility] [address] [place] [address] Kim Frankel APRN FAMILY SPECIALIST [address] [place] [address] documented as of this encounter Visit Diagnoses Not on filedocumented in this encounter Additional Health Concerns Infection Onset Date Last Indicated Resolved Time Rule Out C-difficile 01/22/2023 01/24/2023 023 4:38 PM CDT Assessment Noted Time PHQ-9 Depression Total Score: 1 05/10/19 21 7:05 AM HEADMASTER/MISTRESS documented as of this encounter Care Teams Delivery Rep Relationship Specialty Start Date End Date Feli Smith APRN FAMILY SPECIALIST [address] [place] [address] PCP - General Nurse Practitioner 02/19/18 05/08/21 Trish Mendoza MD [address] [place] [address] PCP - General Family Medicine 05/24/21 01/14/23 Kim Frankel APRN FAMILY SPECIALIST [address] [place] [address] PCP - General Nurse Practitioner Primary Care 01/15/23 Feli Holguin MD [address] [address] Assigned OBGYN Provider 08/19/20 02/14/22 Lakia Lima FAMILY SPECIALIST [address] [place], [place] [address], [place] [address] Assigned PCP 03/24/21 06/01/21 Trish Mendoza MD 2270 [facility] 200 [place] [address] Assigned PCP 06/02/21 11/21/22 Kim Frankel APRN FAMILY SPECIALIST [address]0 [place] [address] Assigned PCP 11/22/22 Kim Frankel APRN FAMILY SPECIALIST [address] [place] [address] Assigned Pain Medication Provider 01/17/23 04/22/23 Mitra Reaves APRN FAMILY SPECIALIST [address] [place] [address], [facility] [address] [place] [address] Assigned Surgical Provider 04/23/23 documented as of this encounter
--- OUTSIDE RECORDS SUMMARY | 2023-09-13 00:48 | XMS_ITS | Encounter Summary ---
Author Organization [facility] Address [address] [place] [address]. [place] [address] Care Team Providers Care English As A Second Language Instructor Name Role Phone Feli Holguin MD Unavailable [phone] Trish Mendoza MD Primary Care Provider Trish Mendoza MD Unavailable [phone] Kim Frankel APRN SCALING MACHINE OPERATOR Unavailable [phone] Kim Frankel APRN SCALING MACHINE OPERATOR Primary Care Provider Kim Frankel APRN SCALING MACHINE OPERATOR Unavailable [phone] Mitra Reaves WARRANTY COORDINATOR SCALING MACHINE OPERATOR Unavailable [phone] Encounter Details Date Type Department Care Team (Late st Contact Info) Description 06/03/2021 [place] [facility] [address] [place] [address] 5th [place] [address] Marium Cai RN Social History Tobacco Use Types Packs/Day Years Used Date Smoking Tobacco: Never Smokeless Tobacco: Never Alcohol Use Standard Drinks/Week Comments Yes 0 (1 standard drink = 0.6 oz pur e alcohol) 1/week to 1/month PHQ-2 Answer Date Recorded PHQ-2 Score 2 05/24/2021 Sex and Gender Information Value Date Recorded Sex Assigned at Female 05/03/2020 6:11 PM VEHICLE CONTROLS ENGINEER Gender Identity Female 05/03/2020 6:11 PM VEHICLE CONTROLS ENGINEER Sexual Orientation Straight 05/03/2020 6: 11 PM VEHICLE CONTROLS ENGINEER COVID-19 Exposure Response Date Recorded In the last month, have you been in contact with someone who was confirmed or suspected to have Coronavirus / COVID-19? No / Unsure 06/03/2021 10:35 AM VEHICLE CONTROLS ENGINEER documented as of this encounter Plan of Treatment Upcoming Encounters Date Type Department Care Team (Late st Contact Info) Description 10/09/2023 1:00 PM CDT Office Visit [facility] 139[address] [place] [address] Kim Frankel APRN SCALING MACHINE OPERATOR [address] [place] [address] documented as of this encounter Visit Diagnoses Not on filedocumented in this encounter Additional Health Concerns Infection Onset Date Last Indicated Resolved Time Rule Out C-difficile 01/22/2023 01/24/2023 023 4:38 PM CDT Assessment Noted Time PHQ-9 Depression Total Score: 5 05/25/19 22 7:02 AM VEHICLE CONTROLS ENGINEER documented as of this encounter Care Teams English As A Second Language Instructor Relationship Specialty Start Date End Date Trish Mendoza MD [address] [place] [address] 700 [place] [address] PCP - General Family Medicine 05/24/21 01/14/23 Kim Frankel APRN SCALING MACHINE OPERATOR [address] [place] [address] PCP - General Nurse Practitioner Primary Care 01/15/23 Feli Holguin MD 606 [facility] 700 [place] [address] Assigned OBGYN Provider 08/19/20 02/14/22 Trish Mendoza MD [facility] 200 [place] [address] Assigned PCP 06/02/21 11/21/22 Kim Frankel APRN SCALING MACHINE OPERATOR 1390 [place] [address] Assigned PCP 11/22/22 Kim Frankel APRN SCALING MACHINE OPERATOR 1390 [place] [address] Assigned Pain Medication Provider 01/17/23 04/22/23 Mitra Reaves APRN SCALING MACHINE OPERATOR [address] [place] [address], [facility] 603 [place] [address] Assigned Surgical Provider 04/23/23 documented as of this encounter
--- OUTSIDE RECORDS SUMMARY | 2023-09-13 00:48 | XMS_ITS | Encounter Summary ---
Author Organization [place] Address [address] [place] [address]. [place] [address] Care Team Providers Care Innersole Fitter Name Role Phone Jostin Kim ALLEN TIRE REBUILDER Unavailable [phone] Kim Frankel APRN TIRE REBUILDER Primary Care Provider [phone] Kim Frankel APRN TIRE REBUILDER Unavailable [phone] Mitra Reaves TACK CLEANER TIRE REBUILDER Unavailable [phone] Encounter Details Date Type Department Care Team (Late st Contact Info) Description 01/20/2023 [facility] [place] [address] [facility] [address] [place] [address] Sylvia Bernstein, RN Social History Tobacco Use Types Packs/Day [...] Sex Assigned at Female 05/03/2020 6:11 PM ASSOCIATE ORACLE RETAIL Gender Identity Female 05/03/2020 6:11 PM ASSOCIATE ORACLE RETAIL Sexual Orientation Straight 05/03/2020 6: 11 PM ASSOCIATE ORACLE RETAIL documented as of this encounter Plan of Treatment Upcoming Encounters Date Type Department Care Team (Late st Contact Info) Description 10/09/2023 1:00 PM CDT Office Visit [facility] 1390 [place] [address] Kim Frankel APRN TIRE REBUILDER 1390 [place] [address] documented as of this encounter Visit Diagnoses Not on filedocumented in this encounter Additional Health Concerns Infection Onset Date Last Indicated Resolved Time Rule Out C-difficile 01/22/2023 01/24/2023 023 4:38 PM CDT Assessment Noted Time PHQ-9 Depression Total Score: 0 10/07/19 23 1:58 PM CDT documented as of this encounter Care Teams Innersole Fitter Relationship Specialty Start Date End Date Kim Frankel APRN TIRE REBUILDER 1390 [place] [address] PCP - General Nurse Practitioner Primary Care 01/15/23 Kim Frankel APRN TIRE REBUILDER [address] [place] [address] Assigned PCP 11/22/22 Kim Frankel APRN TIRE REBUILDER [address] [place] [address] Assigned Pain Medication Provider 01/17/23 04/22/23 Mitra Reaves APRN TIRE REBUILDER [address] [place] [address], [facility] 603 [place], [place] [address] Assigned Surgical Provider 04/23/23 documented as of this encounter
--- OUTSIDE RECORDS SUMMARY | 2023-09-13 00:48 | XMS_ITS | Encounter Summary ---
Author Organization [place] Address [address] [place] [address]. [place] [address] Care Team Providers Care Bias Binding Folder Name Role Phone Kim Frankel APRN GAS ENGINE REPAIRER Unavailable [phone] Kim Frankel APRN GAS ENGINE REPAIRER Primary Care Provider [phone] Mitra Reaves APRN GAS ENGINE REPAIRER Unavailable Reason for Visit * Reason Onset Date Comments Refill Request 08/08/2023 Encounter Details Date Type Department Care Team (Late st Contact Info) Description 08/08/2023 MyC Refill [facility] 139[address] [place] [phone] Kim Frankel APRN GAS ENGINE REPAIRER [address] [place] [address] Refill Request Social History Tobacco Use Types Packs/Day Years [...] Sex Assigned at Female 05/03/2020 6:11 PM REGIONAL PROPERTY MANAGER Gender Identity Female 05/03/2020 6:11 PM REGIONAL PROPERTY MANAGER Sexual Orientation Straight 05/03/2020 6: 11 PM REGIONAL PROPERTY MANAGER documented as of this encounter Plan of Treatment Upcoming Encounters Date Type Department Care Team (Late st Contact Info) Description 10/09/2023 1:00 PM CDT Office Visit [facility] 1390 [place] [address] Kim Frankel APRN GAS ENGINE REPAIRER [address] [place] [address] documented as of this encounter Visit Diagnoses Diagnosis Recurrent major depressive disorder, in full remission (H24) documented in this encounter Additional Health Concerns Assessment Noted Time PHQ-9 Depression Total Score: 0 10/07/19 23 1:58 PM CDT documented as of this encounter Care Teams Bias Binding Folder Relationship Specialty Start Date End Date Kim Frankel APRN CNP [address] [place] [address] PCP - General Nurse Practitioner Primary Care 01/15/23 Kim Frankel APRN GAS ENGINE REPAIRER [address] [place] [address] Assigned PCP 11/22/22 Mitra Reaves APRN GAS ENGINE REPAIRER [address] [place] [address], [facility] 603 [place] [address] Assigned Surgical Provider 04/23/23 documented as of this encounter
--- OUTSIDE RECORDS SUMMARY | 2023-09-13 00:48 | XMS_ITS | Encounter Summary ---
Author Organization [facility] Address [address] [place] [address]. [place] [address] Care Team Providers Care Coal Drier Operator Name Role Phone Jostin Kim ALLEN DRUG AND ALCOHOL COUNSELOR Unavailable [phone] Kim Frankel APRN DRUG AND ALCOHOL COUNSELOR Primary Care Provider [phone] Kim Frankel APRN DRUG AND ALCOHOL COUNSELOR Unavailable [phone] Mitra Reaves WATER RESOURCE MANAGER DRUG AND ALCOHOL COUNSELOR Unavailable [phone] Encounter Details Date Type Department Care Team (Late st Contact Info) Description 02/12/2023 [facility] Adv[facility] [place] [address] [facility] [address] [place] [address] Sylvia Bernstein, RN Social History [...] Sex Assigned at Female 05/03/2020 6:11 PM INCOME TAX RETURN PREPARER Gender Identity Female 05/03/2020 6:11 PM INCOME TAX RETURN PREPARER Sexual Orientation Straight 05/03/2020 6: 11 PM INCOME TAX RETURN PREPARER documented as of this encounter Plan of Treatment Upcoming Encounters Date Type Department Care Team (Late st Contact Info) Description 10/09/2023 1:00 PM CDT Office Visit [facility] [address] [place] [address] Kim Frankel APRN DRUG AND ALCOHOL COUNSELOR 1390 [place] [address] documented as of this encounter Visit Diagnoses Not on filedocumented in this encounter Additional Health Concerns Assessment Noted Time PHQ-9 Depression Total Score: 0 10/07/19 1:58 PM CDT documented as of this encounter Care Teams Coal Drier Operator Relationship Specialty Start Date End Date Kim Frankel APRN DRUG AND ALCOHOL COUNSELOR 1390 [place] [address] PCP - General Nurse Practitioner Primary Care 01/15/23 Kim Frankel APRN CNP [address] [place] [address] Assigned PCP 11/22/22 Kim Frankel APRN DRUG AND ALCOHOL COUNSELOR [address] [place] [address] Assigned Pain Medication Provider 01/17/23 04/22/23 Mitra Reaves APRN DRUG AND ALCOHOL COUNSELOR [address] [place] [address], [facility] 603 [place] [address] Assigned Surgical Provider 04/23/23 documented as of this encounter
--- OUTSIDE RECORDS SUMMARY | 2023-09-13 00:48 | XMS_ITS | Encounter Summary ---
Author Organization [facility] Address [address] [place] [address]. [place] [address] Care Team Providers Care Etl Informatica Architect Name Role Phone Jostin Kim ALLEN CHICKEN VACCINATOR Unavailable [phone] Kim Frankel APRN CHICKEN VACCINATOR Primary Care Provider [phone] Kim Frankel APRN CHICKEN VACCINATOR Unavailable [phone] Mitra Reaves SERVICE REPRESENTATIVE CHICKEN VACCINATOR Unavailable [phone] Encounter Details Date Type Department Care Team (Late st Contact Info) Description 02/02/2023 [facility] [address] [facility] [address] [place] [phone] Isabel Joyce Social History Tobacco Use Types Packs/Day Years [...] Sex Assigned at Female 05/03/2020 6:11 PM MIXER HELPER Gender Identity Female 05/03/2020 6:11 PM MIXER HELPER Sexual Orientation Straight 05/03/2020 6: 11 PM MIXER HELPER documented as of this encounter Plan of Treatment Upcoming Encounters Date Type Department Care Team (Late st Contact Info) Description 10/09/2023 1:00 PM CDT Office Visit [facility] 1390 [place] [address] Kim Frankel APRN CHICKEN VACCINATOR 1390 [place] [address] documented as of this encounter Visit Diagnoses Not on filedocumented in this encounter Additional Health Concerns Assessment Noted Time PHQ-9 Depression Total Score: 0 10/07/19 1:58 PM CDT documented as of this encounter Care Teams Etl Informatica Architect Relationship Specialty Start Date End Date Kim Frankel APRN CHICKEN VACCINATOR 1390 [place] [address] PCP - General Nurse Practitioner Primary Care 01/15/23 Kim Frankel APRN CHICKEN VACCINATOR [address] [place] [address] Assigned PCP 11/22/22 Kim Frankel APRN CHICKEN VACCINATOR [address] [place] [address] Assigned Pain Medication Provider 01/17/23 04/22/23 Mitra Reaves APRN CHICKEN VACCINATOR [address] [place] [address], [facility] 603 [place] [address] Assigned Surgical Provider 04/23/23 documented as of this encounter
--- OUTSIDE RECORDS SUMMARY | 2023-09-13 00:48 | XMS_ITS | Encounter Summary ---
Author Organization [facility] Address [address] [place] [address]. [place] [address] Care Team Providers Care Jointer Submarine Cable Name Role Phone Feli Smith APRN, CNP Primary Care Provid er Feli Smith APRN MILK PICKUP DRIVER Unavailable [phone] Feli Holguin MD Unavailable [phone] Lakia Lima MILK PICKUP DRIVER Unavailable Trish Mendoza MD Primary Care Provider Trish Mendoza MD Unavailable Kim Frankel APRN MILK PICKUP DRIVER Unavailable [phone] Kim Frankel APRN, CNP Primary Care Provider Kim Frankel APRN MILK PICKUP DRIVER Unavailable Mitra Reaves APRN MILK PICKUP DRIVER Unavailable [phone] Encounter Details Date Type Department Care Team (Late st Contact Info) Description 01/17/2020 [facility] [place] [address] [phone] Candice Jones Social History Tobacco Use Types Packs/Day Years Used Date Smoking Tobacco: Never Smokeless Tobacco: Never Alcohol Use Standard Drinks/Week Comments Yes 0 (1 standard drink = 0.6 oz pur e alcohol) 1/week to 1/month PHQ-2 Answer Date Recorded PHQ-2 Score 2 11/07/2019 Sex and Gender Information Value Date Recorded Sex Assigned at Female 05/03/2020 6:11 PM EDITING CLERK Gender Identity Female 05/03/2020 6:11 PM EDITING CLERK Sexual Orientation Straight 05/03/2020 6: 11 PM EDITING CLERK documented as of this encounter Plan of Treatment Upcoming Encounters Date Type Department Care Team (Late st Contact Info) Description 10/09/2023 1:00 PM CDT Office Visit [facility] [address] [place] [address] Kim Frankel APRN MILK PICKUP DRIVER [address] [place] [address] documented as of this encounter Visit Diagnoses Not on filedocumented in this encounter Additional Health Concerns Infection Onset Date Last Indicated Resolved Time Rule Out C-difficile 01/22/2023 01/24/2023 023 4:38 PM CDT Assessment Noted Time PHQ-9 Depression Total Score: 10 020 7:38 AM CDT documented as of this encounter Care Teams Jointer Submarine Cable Relationship Specialty Start Date End Date Feli Smith APRN MILK PICKUP DRIVER 2[address] [place] [address] PCP - General Nurse Practitioner 02/19/18 05/08/21 Trish Mendoza MD 1415 [place] [address] PCP - General Family Medicine 05/24/21 01/14/23 Kim Frankel APRN MILK PICKUP DRIVER 1390 [place] [address] PCP - General Nurse Practitioner Primary Care 01/15/23 Feli Smith APRN MILK PICKUP DRIVER 2[address] [place] [address] Assigned PCP 02/06/19 03/23/21 Feli Holguin MD [address] [facility] 700 [place] [address] Assigned OBGYN Provider 08/19/20 02/14/22 Lakia Lima MILK PICKUP DRIVER 1415 [facility] [place] [address] Assigned PCP 03/24/21 06/01/21 Trish Mendoza MD 2270 [facility] 200 [place], [place] [address] Assigned PCP 06/02/21 11/21/22 Kim Frankel APRN MILK PICKUP DRIVER [address]0 [place] [address] Assigned PCP 11/22/22 Kim Frankel APRN MILK PICKUP DRIVER [address] [place] [address] Assigned Pain Medication Provider 01/17/23 04/22/23 Mitra Reaves APRN MILK PICKUP DRIVER [address] [place] [address], [facility] 603 [place] [address] Assigned Surgical Provider 04/23/23 documented as of this encounter
--- OUTSIDE RECORDS SUMMARY | 2023-09-13 00:48 | XMS_ITS | Referral Summary ---
Author Organization [place] Address [address] [place] [address] Care Team Providers Care Handy Man Name Role Phone Kim Frankel APRN LINEN CHECKER Unavailable [phone] Kim Frankel APRN LINEN CHECKER Primary Care Provider [phone] Mitra Reaves APRN LINEN CHECKER Unavailable Encounters Date Type Department Care Team Description 08/10/2023 Refill M [address] [phone] Kim Frankel APRN LINEN CHECKER Refill Request 08/08/2023 MyC Refill [address] [phone] Kim Frankel APRN LINEN CHECKER Refill Request from Last 3 Months Allergies Active Allergy Reactions Criticality Noted Date [...] L GOAL LESS THAN 160 11/24/2016 05/24/2021 Immunizations Name Administration Dates Next Due COVID-19 [...] 11/26/2005 Zoster recombinant adjuvante d (SHINGRIX) 05/24/2021 Social History Tobacco Use Types Packs/Day Years [...] Sex Assigned at Female 05/03/2020 6:11 PM BREAKDOWN WORKER Gender Identity Female 05/03/2020 6:11 PM BREAKDOWN WORKER Sexual Orientation Straight 05/03/2020 6: 11 PM BREAKDOWN WORKER Last Filed Vital Signs Vital Sign Reading Time Taken Comments Blood Pressure 96/74 02/02/2023 11:02 AM BREAKDOWN WORKER Pulse 71 02/02/2023 11:15 AM BREAKDOWN WORKER Temperature 35.9 ??C (96.7 ??F) 02/02/2023 11:[address] Respiratory Rate 16 02/02/2023 11:02 AM BREAKDOWN WORKER Oxygen Saturation 92% 02/02/2023 11:15 AM BREAKDOWN WORKER Inhaled Oxygen Concentration - - Weight 76.7 kg (169 lb) 03/05/2023 8:42 AM BREAKDOWN WORKER Height 157.5 cm (5' 2) 03/05/2023 8:42 AM BREAKDOWN WORKER Body Mass Index 30.91 03/05/2023 8:42 AM BREAKDOWN WORKER Plan of Treatment Upcoming Encounters Date Type Department Care Team (Late st Contact Info) Description 10/09/2023 1:00 PM CDT Office Visit [facility] [address] [place] [address] Kim Frankel APRN [facility] [address]0 [place] [address] Medical Devices Implanted Type Area Merchant Seaman Device Identifier Shelf Expiration Date Model / Serial / Lot Stent, Ureteral, 4.8fr X 24cm, Hydroplus Coating, Without Wire, Percuflex Plus - [id number] Implanted:Qty: 1 on 02/02/2023 by Alton Reynolds MD at [facility] Stent Left: Ureter 09/30/2025 [id number] / / [id number] Explanted Type Area Merchant Seaman Device Identifier Shelf Expiration Date Model / Serial / Lot Stent Ureteral Percuflex Plus [id number] - Sn/A Implanted:Qty: 1 on 01/16/2023 by Batsheva Myers MD at [facility] Explanted:Qty: 1 on 02/02/2023 by Alton Reynolds MD at [facility] [place] [id number] 07/08/2025 [id number] / N/A / [id number] Procedures Procedure Name Priority Date/Time Associated Diagnosis Comments BASIC METABOLIC PANEL Routine 01/22/2023 12:07 PM CDT Preop general physical exam LIPID REFLEX TO DIRECT LDL PANEL Routine 10/06/2022 3:28 PM CDT Moderate mixed hyperlipidemia not requiring statin therapy COLONOSCOPY - HIM SCAN 06/06/2021 12:00 AM BREAKDOWN WORKER HEPATITIS C SCREEN REFLEX TO HCV RNA QUANT AND GENOTYPE Routine 05/24/2021 2:16 PM BREAKDOWN WORKER Need for hepatitis C screening test FECAL COLORECTAL CANCER SCREEN FIT Routine 02/04/2019 8:00 AM BREAKDOWN WORKER Screen for colon cancer HIV ANTIGEN ANTIBODY COMBO Routine 01/25/2019 3:23 PM CDT Well adult health check MA SCREENING BILATERAL W/ CLIVE Routine 02/04/2018 8:47 AM BREAKDOWN WORKER Encounter for screening mammogram for breast cancer GYNECOLOGIC CYTOLOGY Routine 01/12/2009 8:55 AM CDT from Last 3 Months or Most Recently Relevant to Health Maintenance Results * Basic metabolic panel (Ca, Cl, CO2, Creat, Gluc, K, Na, BUN) (01/22/2023 12:07 PM CDT) Sodium 137 135 - 145 mmol/L 01/23/2023 [...] LAB - BLOOD ORDERABL ES [facility] [place] [facility] [address] [facility], [address] [place] [address], [facility] [phone] * (ABNORMAL) Lipid panel reflex to direct [...] or equal to 220 mg/dL Kim Frankel APRN LINEN CHECKER LAB - BLOOD ORDERAB LES LABORATORY [facility] [place] [facility] [address] [facility], [address] [address], [facility] [phone] * COLONOSCOPY - HIM SCAN (06/06/2021 12:00 AM BREAKDOWN WORKER) 06/06/2021 Provider Outside PROCEDURES * Hepatitis C Screen Reflex to HCV RNA Quant and Genotype (05/24/2021 2:16 PM BREAKDOWN WORKER) Hepatitis C Antibody Nonreactive Nonreactive 05/25/2021 9:43 AM BREAKDOWN WORKER SPECIALTY CORE/PROT/EN DO Blood STRUCTURE OF RIGHT UPPER LIMB / Unknown Venipuncture / Unknown 05/24/2021 2:16 PM BREAKDOWN WORKER 05/24/2021 2:16 PM BREAKDOWN WORKER Narrative SPECIALTY CORE/PROT/ENDO - 05/25/2021 9:43 AM BREAKDOWN WORKER Assay performance characteristics have not been established for newborns, infants, and children. Trish Mendoza MD LAB - BLOOD ORDERAB LES [facility] SPECIALTY CORE/PROT/ENDO [facility] Specialty Core/Prot/Endo [address] [facility] [address], Room [address] [place] [address], [facility] [phone] * Fecal colorectal cancer screen FIT - Future (S+30) (02/04/2019 8:00 AM BREAKDOWN WORKER) Occult Blood Scn FIT Negative NEG^Negati ve 02/11/2019 6:10 PM BREAKDOWN WORKER [facility] Stool specimen (specimen) 02/04/2019 8:00 AM BREAKDOWN WORKER 02/11/2019 1:44 PM BREAKDOWN WORKER Feli Smith APRN LINEN CHECKER LAB - STOOLS ORDERABLES Performing Organization Address [facility]/[place] [address] * HIV Screening (01/25/2019 3:23 PM CDT) HIV Antigen Antibody Combo Nonreactive NR^Nonrea ctive 01/26/2019 12:02 PM CDT [facility] Comment:HIV-1 p24 Ag & HIV-1 /HIV-2 Ab Not Detected Blood specimen (specimen) 01/25/2019 3:23 PM CDT 01/25/2019 3:24 PM CDT Feli Smith APRN LINEN CHECKER LAB - BLOOD ORDERABLES Performing Organization Address City/[facility]/[place] [address] * MA Screen Bilateral w/Clive (02/04/2018 8:47 AM BREAKDOWN WORKER) Anatomical Region Laterality Modality Breast Bilateral Mammography Impressions 02/05/2018 2:36 PM BREAKDOWN WORKER IMPRESSION: BI-RADS CATEGORY: 1 - ??NEGATIVE. RECOMMENDED [...] MOISES BRITT MD Narrative 02/05/2018 2:36 PM BREAKDOWN WORKER SCREENING MAMMOGRAM, BILATERAL, DIGITAL, with CAD and [...] findings. MOISES BRITT MD Feli Smith APRN LINEN CHECKER IMG MAMMOGRA PHY ORDERABLES * Gynecologic Cytology (PAP Smear) (01/12/2009 8:55 AM CDT) 01/12/2009 8:55 AM CDT 01/12/2009 8:55 AM CDT Narrative [facility] - 01/12/2009 8:55 AM CDT [id number] ? Slide(s) 1 Specimen Type: ??SUREPATH SCREEN SOURCE: VAGINAL PAP SMEAR INTERPRETATION: NEGATIVE FOR SQUAMOUS INTRAEPITHELIAL LESION OR MALIGNANCY Based on Pap interpretation, HPV reflex test not performed. No Endocervical Cells Present; Vaginal Source Satisfactory for Interpretation PATIENT HISTORY Reflex HPV.................: YES IF ABNORMAL High Risk..................: NO LMP/Menopause Date.........: unknown Abnormal Bleeding:.........: NO Pt Status..................: NOT APPLICABLE Control/Hormones.....: NONE Previous Normal/Date.......: 2006 Prev. Abn Date/Dx..........: Cervical Appearance........: S. [address] CT(ASCP) ? (electronically signed) Performed at: ??[facility] [address] [place] [address] Date Received: 01/12/09 ?Date Completed: 01/18/09 ??ABN Complete: [facility] [address] [place] [address], [facility] [address] [place] [address] from Last 3 Months or Most Recently Relevant to Health Maintenance Advance Directives For more information, please contact: [phone] * Full Code (Latest Code Status on [...] Discussion with cecily nt/ legal decision maker Care Teams Handy Man Relationship Specialty Start Date End Date Kim Frankel APRN LINEN CHECKER [address] [place] [address] PCP - General Nurse Practitioner Primary Care 01/15/23 Kim Frankel APRN LINEN CHECKER [address] [place] [address] Assigned PCP 11/22/22 Mitra Reaves APRN LINEN CHECKER [address] [place] [address], [facility] [address] [place], [place] [address] Assigned Surgical Provider 04/23/23
--- OUTSIDE RECORDS SUMMARY | 2023-09-13 00:48 | XMS_ITS | Encounter Summary ---
Author Organization [place] Address [address] [place] [address]. [place] [address] Care Team Providers Care Fuel Cell Assembler Name Role Phone Jostin Kim ALLEN SALES INTERN Unavailable Kim Frankel APRN SALES INTERN Primary Care Provider [phone] Kim Frankel APRN SALES INTERN Unavailable [phone] Mitra Reaves ELECTRICAL ENGINEERING TECHNOLOGIST SALES INTERN Unavailable Encounter Details Date Type Department Care Team (Late st Contact Info) Description 01/19/2023 [facility] Medical Advice [address] [address] Andrés Garvey MD [address] [place] [address] [id number] Social History Tobacco Use Types Packs/Day Years [...] Sex Assigned at Female 05/03/2020 6:11 PM CREDIT CONTROL ASSISTANT Gender Identity Female 05/03/2020 6:11 PM CREDIT CONTROL ASSISTANT Sexual Orientation Straight 05/03/2020 6: 11 PM CREDIT CONTROL ASSISTANT documented as of this encounter Plan of Treatment Upcoming Encounters Date Type Department Care Team (Late st Contact Info) Description 10/09/2023 1:00 PM CDT Office Visit [facility] [address] [place] [address] Kim Frankel APRN SALES INTERN [address] [place] [address] documented as of this encounter Visit Diagnoses Not on filedocumented in this encounter Additional Health Concerns Infection Onset Date Last Indicated Resolved Time Rule Out C-difficile 01/22/2023 01/24/2023 023 4:38 PM CDT Assessment Noted Time PHQ-9 Depression Total Score: 0 10/07/19 23 1:58 PM CDT documented as of this encounter Care Teams Fuel Cell Assembler Relationship Specialty Start Date End Date Kim Frankel APRN SALES INTERN [address] [place] [address] PCP - General Nurse Practitioner Primary Care 01/15/23 Kim Frankel APRN SALES INTERN [address] [place] [address] Assigned PCP 11/22/22 Kim Frankel APRN SALES INTERN [address] [place] [address] Assigned Pain Medication Provider 01/17/23 04/22/23 Mitra Reaves APRN SALES INTERN [address] [place] [address], [facility] [address] [place] [address] Assigned Surgical Provider 04/23/23 documented as of this encounter
--- OUTSIDE RECORDS SUMMARY | 2023-09-13 00:48 | XMS_ITS | Encounter Summary ---
Author Organization [place] Address [address] [place] [address]. [place] [address] Care Team Providers Care Eyeglass Assembler Name Role Phone Trish Mendoza MD Primary Care Provider Trish Mendoza MD Unavailable [phone] Kim Frankel APRN DIRECTOR WATER AND WASTE SERVICES Unavailable [phone] Kim Frankel APRN, CNP Primary Care Provider [phone] Kim Frankel APRN DIRECTOR WATER AND WASTE SERVICES Unavailable [phone] Mitra Reaves JIG INSPECTOR DIRECTOR WATER AND WASTE SERVICES Unavailable [phone] Encounter Details Date Type Department Care Team (Late st Contact Info) Description 07/25/2022 [facility] Medical Advice [address] [place] [address] Bobbi Gonzalez Social History Tobacco Use Types Packs/Day Years Used Date Smoking Tobacco: Never Smokeless Tobacco: Never Alcohol Use Standard Drinks/Week Comments Yes 0 (1 standard drink = 0.6 oz pur e alcohol) 1/week to 1/month PHQ-2 Answer Date Recorded PHQ-2 Score 2 05/24/2021 Sex and Gender Information Value Date Recorded Sex Assigned at Female 05/03/2020 6:11 PM ADVERTISING INTERNSHIP Gender Identity Female 05/03/2020 6:11 PM ADVERTISING INTERNSHIP Sexual Orientation Straight 05/03/2020 6: 11 PM ADVERTISING INTERNSHIP documented as of this encounter Plan of Treatment Upcoming Encounters Date Type Department Care Team (Late st Contact Info) Description 10/09/2023 1:00 PM CDT Office Visit [address] [place] [address] Kim Frankel APRN DIRECTOR WATER AND WASTE SERVICES [address] [place] [address] documented as of this encounter Visit Diagnoses Not on filedocumented in this encounter Additional Health Concerns Infection Onset Date Last Indicated Resolved Time Rule Out C-difficile 01/22/2023 01/24/2023 023 4:38 PM CDT Assessment Noted Time PHQ-9 Depression Total Score: 5 05/25/19 22 7:02 AM ADVERTISING INTERNSHIP documented as of this encounter Care Teams Eyeglass Assembler Relationship Specialty Start Date End Date Trish Mendoza MD PCP - General Family Medicine 05/24/21 01/14/23 Kim Frankel APRN DIRECTOR WATER AND WASTE SERVICES [address] [place] [address] PCP - General Nurse Practitioner Primary Care 01/15/23 Trish Mendoza MD [address] [place] [address] Assigned PCP 06/02/21 11/21/22 Kim Frankel APRN DIRECTOR WATER AND WASTE SERVICES [address] [place] [address] Assigned PCP 11/22/22 Kim Frankel APRN DIRECTOR WATER AND WASTE SERVICES [address] [place] [address] Assigned Pain Medication Provider 01/17/23 04/22/23 Mitra Reaves APRN DIRECTOR WATER AND WASTE SERVICES [address] [place] [address], [facility] [address] [place] [address] Assigned Surgical Provider 04/23/23 documented as of this encounter
--- OUTSIDE RECORDS SUMMARY | 2023-09-13 00:48 | XMS_ITS | Encounter Summary ---
Author Organization [facility] Address [address] [place] [address]. [place] [address] Care Team Providers Care Liquor Grinder Mill Operator Name Role Phone Feli Smith APRN, CNP Primary Care Provid er Feli Holguin MD Unavailable [phone] Lakia Lima PRESS WASHER Unavailable [phone] Trish Mendoza MD Primary Care Provider Trish Mendoza MD Unavailable Kim Frankel APRN, CNP Unavailable [phone] Kim Frankel APRN, CNP Primary Care Provider Kim Frankel APRN PRESS WASHER Unavailable Mitra Reaves APRN PRESS WASHER Unavailable Reason for Visit * Reason Comments Medication Refill Encounter Details Date Type Department Care Team (Late st Contact Info) Description 04/10/[address] [phone] Feli Smith APRN CNP [address] [place] [id number] Medication Refill Social History Tobacco Use Types Packs/Day Years Used Date Smoking Tobacco: Never Smokeless Tobacco: Never Alcohol Use Standard Drinks/Week Comments Yes 0 (1 standard drink = 0.6 oz pur e alcohol) 1/week to 1/month PHQ-2 Answer Date Recorded PHQ-2 Score 2 11/07/2019 Sex and Gender Information Value Date Recorded Sex Assigned at Female 05/03/2020 6:11 PM TOP LOADER Gender Identity Female 05/03/2020 6:11 PM TOP LOADER Sexual Orientation Straight 05/03/2020 6: 11 PM TOP LOADER documented as of this encounter Miscellaneous Notes * Telephone Encounter - Peyton Cornejo - 04/11/2021 12:31 PM CST No VM-sent MyChart message regarding need to est care and advised no further fills until appt is had- LOADER * Telephone Encounter - Manisha Quintana RN - 04/11/2021 9:48 AM TOP LOADER Medication is being filled for 1 time refill only due to: Patient needs to be seen because needs toest care with new provider. TCs- please contact pt and made virtual appt to est care with new provider for further refills SUAD Obrien RN [facility] LOADER documented in this encounter Plan of Treatment Upcoming Encounters Date Type Department Care Team (Late st Contact Info) Description 10/09/2023 1:00 PM CDT Office Visit [facility] [address] [place] [address] Kim Frankel APRN PRESS WASHER [address] [place] [address] documented as of this encounter Visit Diagnoses Diagnosis Recurrent major depressive disorder, in full remission (H24) documented in this encounter Additional Health Concerns Infection Onset Date Last Indicated Resolved Time Rule Out C-difficile 01/22/2023 01/24/2023 023 4:38 PM CDT Assessment Noted Time PHQ-9 Depression Total Score: 1 05/10/19 21 7:05 AM TOP LOADER documented as of this encounter Care Teams Liquor Grinder Mill Operator Relationship Specialty Start Date End Date Feli Smith APRN PRESS WASHER [address] [place] [address] PCP - General Nurse Practitioner 02/19/18 05/08/21 Trish Mendoza MD [address] [place] [address] PCP - General Family Medicine 05/24/21 01/14/23 Kim Frankel APRN PRESS WASHER [address] [place] [address] PCP - General Nurse Practitioner Primary Care 01/15/23 Feli Holguin MD [address] [facility] [address] [place] [address] Assigned OBGYN Provider 08/19/20 02/14/22 Lakia Lima PRESS WASHER [address] [place] [address] Assigned PCP 03/24/21 06/01/21 Trish Mendoza MD [address] [facility] 200 [place] [address] Assigned PCP 06/02/21 11/21/22 Kim Frankel APRN PRESS WASHER [address] [place] [address] Assigned PCP 11/22/22 Kim Frankel APRN PRESS WASHER [address] [place] [address] Assigned Pain Medication Provider 01/17/23 04/22/23 Mitra Reaves, WHEAT AND OATS FLAKE MILLER PRESS WASHER [address] [place] [address], [facility] [address] [place] [address] Assigned Surgical Provider 04/23/23 documented as of this encounter
--- OUTSIDE RECORDS SUMMARY | 2023-09-13 00:48 | XMS_ITS | Encounter Summary ---
Author Organization [place] Address [address] [place] [address]. [place] [address] Care Team Providers Care Railroad Car Letterer Name Role Phone Feli Smith APRN, CNP Primary Care Provid er Feli Smith APRN STRING LASTER Unavailable Feli Holguin MD Unavailable [phone] Lakia Lima STRING LASTER Unavailable [phone] Trish Mendoza MD Primary Care Provider Trish Mendoza MD Unavailable [phone] Kim Frankel APRN STRING LASTER Unavailable [phone] Kim Frankel APRN, CNP Primary Care Provider Kim Frankel APRN STRING LASTER Unavailable [phone] Mitra Reaves APRN STRING LASTER Unavailable [phone] Encounter Details Date Type Department Care Team (Late st Contact Info) Description 03/20/2021 Documentation Only INTERFACED REPORT Unknown, Provider Social History Tobacco Use Types Packs/Day Years Used Date Smoking Tobacco: Never Smokeless Tobacco: Never Alcohol Use Standard Drinks/Week Comments Yes 0 (1 standard drink = 0.6 oz pur e alcohol) 1/week to 1/month PHQ-2 Answer Date Recorded PHQ-2 Score 2 11/07/2019 Sex and Gender Information Value Date Recorded Sex Assigned at Female 05/03/2020 6:11 PM DEPOSITION OPERATOR Gender Identity Female 05/03/2020 6:11 PM DEPOSITION OPERATOR Sexual Orientation Straight 05/03/2020 6: 11 PM DEPOSITION OPERATOR documented as of this encounter Plan of Treatment Upcoming Encounters Date Type Department Care Team (Late st Contact Info) Description 10/09/2023 1:00 PM CDT Office Visit [facility] [address] [place] [address] Kim Frankel APRN STRING LASTER [address] [place] [address] documented as of this encounter Visit Diagnoses Not on filedocumented in this encounter Additional Health Concerns Infection Onset Date Last Indicated Resolved Time Rule Out C-difficile 01/22/2023 01/24/2023 023 4:38 PM CDT Assessment Noted Time PHQ-9 Depression Total Score: 1 05/10/19 21 7:05 AM DEPOSITION OPERATOR documented as of this encounter Care Teams Railroad Car Letterer Relationship Specialty Start Date End Date Feli Smith APRN STRING LASTER [address] [place] [address] PCP - General Nurse Practitioner 02/19/18 05/08/21 Trish Mendoza MD [address] [place] [address] PCP - General Family Medicine 05/24/21 01/14/23 Kim Frankel APRN STRING LASTER [address] [place] [address] PCP - General Nurse Practitioner Primary Care 01/15/23 Feli Smith APRN STRING LASTER [address] [place] [address] Assigned PCP 02/06/19 03/23/21 Feli Holguin MD [address] [place] [address] Assigned OBGYN Provider 08/19/20 02/14/22 Lakia Lima, STRING LASTER [address] [facility] [place] [address] Assigned PCP 03/24/21 06/01/21 Trish Mendoza MD [address] [address] Assigned PCP 06/02/21 11/21/22 Kim Frankel APRN STRING LASTER [address] [place] [address] Assigned PCP 11/22/22 Kim Frankel APRN STRING LASTER [address] [place] [address] Assigned Pain Medication Provider 01/17/23 04/22/23 Mitra Reaves APRN STRING LASTER [address] [place] [address], [facility] [address] [place] [address] Assigned Surgical Provider 04/23/23 documented as of this encounter
--- OUTSIDE RECORDS SUMMARY | 2023-09-13 00:48 | XMS_ITS | Encounter Summary ---
Author Organization [place] Address [address] [place] [address]. [place] [address] Care Team Providers Care Sharepoint Application Developer Name Role Phone Kim Frankel APRN SYSTEM DISPATCHER Unavailable Kim Frankel APRN SYSTEM DISPATCHER Primary Care Provider [phone] Mitra Reaves APRN SYSTEM DISPATCHER Unavailable [phone] Reason for Visit * Reason Onset Date Comments Refill Request 08/10/2023 Encounter Details Date Type Department Care Team (Late st Contact Info) Description 08/10/2023 Refill [facility] [address] [place] [phone] Kim Frankel APRN SYSTEM DISPATCHER [address] [place], [place] [id number] Refill Request Social History Tobacco Use Types [...] Sex Assigned at Female 05/03/2020 6:11 PM ENROLLMENT MANAGEMENT COORDINATOR Gender Identity Female 05/03/2020 6:11 PM ENROLLMENT MANAGEMENT COORDINATOR Sexual Orientation Straight 05/03/2020 6: 11 PM ENROLLMENT MANAGEMENT COORDINATOR documented as of this encounter Miscellaneous Notes * Telephone Encounter - Tana Lamar - 08/10/2023 3:54 PM CDT Pt is out of medication please send new script documented in this encounter Plan of Treatment Upcoming Encounters Date Type Department Care Team (Late st Contact Info) Description 10/09/2023 1:00 PM CDT [facility] [address] [place] [phone] Kim Frankel APRN [facility] [address] [place] [address] documented as of this encounter Visit Diagnoses Diagnosis Recurrent major depressive disorder, in full remission (H24) documented in this encounter Additional Health Concerns Assessment Noted Time PHQ-9 Depression Total Score: 0 07/10/20 23 1:58 PM CDT documented as of this encounter Care Teams Sharepoint Application Developer Relationship Specialty Start Date End Date Kim Frankel APRN SYSTEM DISPATCHER [address] [place] [address] PCP - General Nurse Practitioner Primary Care 01/15/23 Kim Frankel APRN SYSTEM DISPATCHER [address] [place] [address] Assigned PCP 11/22/22 Mitra Reaves APRN SYSTEM DISPATCHER [address] [place] [address], [facility] [address] [place] [address] Assigned Surgical Provider 04/23/23 documented as of this encounter
--- OUTSIDE RECORDS SUMMARY | 2023-09-13 00:49 | XMS_ITS | Encounter Summary ---
Author Organization [place] Address [address] [place] [address]. [place] [address] Care Team Providers Care Sheet Metal Mechanic Name Role Phone Feli Smith APRN, CNP Primary Care Provid er Feli Smith APRN, CNP Unavailable Álvaro Lott MD Unavailable Feli Smith APRN SEWAGE PLANT SUPERVISOR Unavailable [phone] Feil Holguin MD Unavailable Lakia Lima SEWAGE PLANT SUPERVISOR Unavailable Trish Mendoza MD Primary Care Provider [phone] Trish Mendoza MD Unavailable Kim Frankel APRN SEWAGE PLANT SUPERVISOR Unavailable Kim Frankel APRN, CNP Primary Care Provider Kim Frankel APRN SEWAGE PLANT SUPERVISOR Unavailable [phone] Mitra Revaes APRN SEWAGE PLANT SUPERVISOR Unavailable [phone] Reason for Visit * Reason Onset Date Comments Refill Request 11/23/2018 FLUOXETINE 20MG CAP needs appt 11/23/2018 Encounter Details Date Type Department Care Team (Late st Contact Info) Description 11/23/[address] [phone] Feli Smith APRN CNP [address] [place] [address] Refill Request (FLUOXETINE 20MG CAP); needs appt Social History Tobacco Use Types Packs/Day Years Used Date Smoking Tobacco: Never Smokeless Tobacco: Never Alcohol Use Standard Drinks/Week Comments Yes 0 (1 standard drink = 0.6 oz pur e alcohol) 1/week to 1/month PHQ-2 Answer Date Recorded PHQ-2 Score 2 04/07/2018 Sex and Gender Information Value Date Recorded Sex Assigned at Female 05/03/2020 6:11 PM INSPECTOR CHIEF Gender Identity Female 05/03/2020 6:11 PM INSPECTOR CHIEF Sexual Orientation Straight 05/03/2020 6: 11 PM INSPECTOR CHIEF documented as of this encounter Miscellaneous Notes * Telephone Encounter - Feli Smith APRN CNP - 12/03/2018 3:28 PM CDT Needs to be seen by provider for further refills * Telephone Encounter - Vannessa Becker RN - 12/03/2018 12:43 PM CDT Patient uses mail order pharmacy Routing refill request to provider for review/approval because: PHQ 9 > 4 * Telephone Encounter - Candice Jones - 12/03/2018 12:35 PM CDT Sending letter. Routing to nurse team due to pending medication. Candice [facility] Immigration Consultant * Telephone Encounter - Susu Soriano - 12/02/2018 12:02 PM CDT LM to return clinic phone call. Patient is due for follow up. MyChart msg sent, will wait to see if pt reads it. Susu Schuler Immigration Consultant [facility] * Telephone Encounter - Janae Thorne RN - 12/01/2018 3:27 PM CDT Recall * Telephone Encounter - Candice Jones - 11/25/2018 3:17 PM CDT Left message on answering machine that an appointment must be scheduled prior to additional refillsgiven. Candice Cabezas Posey Immigration Consultant * Telephone Encounter - Yamel Barnes RN - 11/25/2018 3:07 PM CDT PHQ-9 score: PHQ-9 SCORE 12/14/2017 PHQ-9 Total Score MyChart - PHQ-9 Total Score 7 Pt due for appt now Immigration Consultant, Please call pt to make appt Thank you, Yamel Barnes RN * Telephone Encounter - Josie Callaway - 11/24/2018 4:19 PM CDT Requested Prescriptions Pending Prescriptions Disp Refills ??? FLUoxetine (PROZAC) 20 MG capsule [Pharmacy Med Name: FLUOXETINE 20MG CAP] 90 capsule 3 Sig: TAKE 1 CAPSULE BY MOUTH DAILY Last Written Prescription Date: 12/14/2017 Last Fill Quantity: 90 capsule , # refills: 3 Last Office Visit: 12/14/2017 Future Office Visit: SSRIs Protocol Failed - 11/23/2018 9:07 PM Failed - PHQ-9 score less than 5 in past 6 months Please review last PHQ-9 score. Failed - Recent (6 mo) or future (30 days) visit within the authorizing provider's specialty Patient had office visit in the last 6 months or has a visit in the next 30 days with authorizing provider or within the authorizing provider's specialty. See Patient Info tab in inbasket, or Choose Columns in Meds & Orders section of the refill encounter. Passed - Medication is active on med list Passed - Patient is age 18 or older Passed - No active on record Passed - No positive test in last 12 months PHQ-9 SCORE 09/25/2016 10/03/2016 12/14/2017 PHQ-9 Total Score MyChart 2 (Minimal depression) - - PHQ-9 Total Score 2 2 7 VIOLETTA-7 SCORE 08/14/2015 12/14/2017 Total Score 2 3 documented in this encounter Plan of Treatment Upcoming Encounters Date Type Department Care Team (Late st Contact Info) Description 10/09/2023 1:00 PM CDT Office Visit [facility] [address] [place] [address] Kim Frankel APRN SEWAGE PLANT SUPERVISOR [address] [place] [address] documented as of this encounter Visit Diagnoses Diagnosis Recurrent major depressive disorder, in full remission (H24) documented in this encounter Additional Health Concerns Infection Onset Date Last Indicated Resolved Time Rule Out C-difficile 01/22/2023 01/24/2023 023 4:38 PM CDT Assessment Noted Time PHQ-9 Depression Total Score: 7 12/16/19 18 4:58 PM CDT documented as of this encounter Care Teams Sheet Metal Mechanic Relationship Specialty Start Date End Date Feli Smith APRN SEWAGE PLANT SUPERVISOR [address] [place] [address] PCP - General Nurse Practitioner 02/19/18 05/08/21 Trish Mendoza MD [address] [place] [address] PCP - General Family Medicine 05/24/21 01/14/23 Kim Frankel APRN SEWAGE PLANT SUPERVISOR [address] [place] [address] PCP - General Nurse Practitioner Primary Care 01/15/23 Feli Smith APRN SEWAGE PLANT SUPERVISOR [address] [place] [address] Assigned PCP 09/21/16 12/18/18 Álvaro Lott MD [address] [facility] [address] [place] [address] Assigned PCP 12/19/18 02/05/19 Feli Smith APRN SEWAGE PLANT SUPERVISOR [address] [place] [address] Assigned PCP 02/06/19 03/23/21 Feli Holguin MD [address] [facility] [address] [place] [address] Assigned OBGYN Provider 08/19/20 02/14/22 Lakia Lima SEWAGE PLANT SUPERVISOR [address] [place] [address] Assigned PCP 03/24/21 06/01/21 [place] [address] [place] [address] Assigned PCP 06/02/21 11/21/22 Kim Frankel APRN SEWAGE PLANT SUPERVISOR [address] [place] [address] Assigned PCP 11/22/22 Kim Frankel APRN SEWAGE PLANT SUPERVISOR [address] [place] [address] Assigned Pain Medication Provider 01/17/23 04/22/23 Mitra Reaves, ASSISTANT SCIENTIST SEWAGE PLANT SUPERVISOR [address] [place] [address] Assigned Surgical Provider 04/23/23 documented as of this encounter
--- OUTSIDE RECORDS SUMMARY | 2023-09-13 00:49 | XMS_ITS | Encounter Summary ---
Author Organization [facility] Address [address] [place] [address]. [place] [address] Care Team Providers Care Nuclear Reactor Engineer Name Role Phone Feli Smith APRN, CNP Primary Care Provid er Feli Smith APRN ASSOCIATE SOFTWARE APPLICATION ENGINEER Unavailable + [phone] Feli Holguin MD Unavailable [phone] Lakia Lima ASSOCIATE SOFTWARE APPLICATION ENGINEER Unavailable Trish Mendoza MD Primary Care Provider Trish Mendoza MD Unavailable [phone] Kim Frankel APRN ASSOCIATE SOFTWARE APPLICATION ENGINEER Unavailable Kim Frankel APRN, CNP Primary Care Provider [phone] Kim Frankel APRN ASSOCIATE SOFTWARE APPLICATION ENGINEER Unavailable Mitra Reaves APRN ASSOCIATE SOFTWARE APPLICATION ENGINEER Unavailable [phone] Encounter Details Date Type Department Care Team (Late st Contact Info) Description 11/01/2019 [facility] [address] [phone] Rivera Santos Social History Tobacco Use Types Packs/Day Years Used Date Smoking Tobacco: Never Smokeless Tobacco: Never Alcohol Use Standard Drinks/Week Comments Yes 0 (1 standard drink = 0.6 oz pur e alcohol) 1/week to 1/month PHQ-2 Answer Date Recorded PHQ-2 Score 2 01/26/2019 Sex and Gender Information Value Date Recorded Sex Assigned at Female 05/03/2020 6:11 PM WEB SITE DESIGNER Gender Identity Female 05/03/2020 6:11 PM WEB SITE DESIGNER Sexual Orientation Straight 05/03/2020 6: 11 PM WEB SITE DESIGNER COVID-19 Exposure Response Date Recorded In the last month, have you been in contact with someone who was confirmed or suspected to have Coronavirus / COVID-19? No / Unsure 10/21/2019 2:39 PM CDT documented as of this encounter Plan of Treatment Upcoming Encounters Date Type Department Care Team (Late st Contact Info) Description 10/09/2023 1:00 PM CDT Office Visit [facility] [address] [place] [address] Kim Frankel APRN ASSOCIATE SOFTWARE APPLICATION ENGINEER [address] [place] [address] documented as of this encounter Visit Diagnoses Not on filedocumented in this encounter Additional Health Concerns Infection Onset Date Last Indicated Resolved Time Rule Out C-difficile 01/22/2023 01/24/2023 023 4:38 PM CDT Assessment Noted Time PHQ-9 Depression Total Score: 12 019 3:15 PM CDT documented as of this encounter Care Teams Nuclear Reactor Engineer Relationship Specialty Start Date End Date Feli Smith APRN ASSOCIATE SOFTWARE APPLICATION ENGINEER [address] [place] [address] PCP - General Nurse Practitioner 02/19/18 05/08/21 Trish Mendoza MD [address] [place] [address] PCP - General Family Medicine 05/24/21 01/14/23 Kim Frankel APRN ASSOCIATE SOFTWARE APPLICATION ENGINEER [address] [place] [address] PCP - General Nurse Practitioner Primary Care 01/15/23 Feli Smith APRN ASSOCIATE SOFTWARE APPLICATION ENGINEER [address] [facility] [place] [address] Assigned PCP 02/06/19 03/23/21 Feli Holguin MD [address] [facility] [address] [place] [address] Assigned OBGYN Provider 08/19/20 02/14/22 Lakia Lima ASSOCIATE SOFTWARE APPLICATION ENGINEER [address] [place] [address] Assigned PCP 03/24/21 06/01/21 Trish Mendoza MD [address] [facility] [address] [place] [address] Assigned PCP 06/02/21 11/21/22 Kim Frankel APRN ASSOCIATE SOFTWARE APPLICATION ENGINEER [address] [place] [address] Assigned PCP 11/22/22 Kim Frankel APRN ASSOCIATE SOFTWARE APPLICATION ENGINEER [address] [place] [address] Assigned Pain Medication Provider 01/17/23 04/22/23 Mitra Reaves APRN ASSOCIATE SOFTWARE APPLICATION ENGINEER [address] [place] [address], [facility] [address] [place] [address] Assigned Surgical Provider 04/23/23 documented as of this encounter
--- OUTSIDE RECORDS SUMMARY | 2023-09-13 00:49 | XMS_ITS | Encounter Summary ---
Author Organization [facility] Address [address] [place] [address]. [place] [address] Care Team Providers Care Customer Solutions Supervisor Name Role Phone Feli Smith APRN, CNP Primary Care Provid er Feli Smith APRN REED DIPPER Unavailable [phone] Feli Holguin MD Unavailable [phone] Lakia Lima REED DIPPER Unavailable [phone] Trish Mendoza MD Primary Care Provider Trish Mendoza MD Unavailable Kim Frankel APRN REED DIPPER Unavailable [phone] Kim Frankel APRN, CNP Primary Care Provider Kim Frankel APRN REED DIPPER Unavailable [phone] Mitra Reaves APRN REED DIPPER Unavailable Reason for Visit * Reason Onset Date Comments MyChart Communication 04/08/2019 Medication Request 04/08/2019 Depression Encounter Details Date Type Department Care Team (Late st Contact Info) Description 04/08/2019 [facility] [address] [phone] Feli Smith APRN CNP [address] [place] [phone] MyChart Communication; Medication Request ... Social History Tobacco Use Types Packs/Day Years Used Date Smoking Tobacco: Never Smokeless Tobacco: Never Alcohol Use Standard Drinks/Week Comments Yes 0 (1 standard drink = 0.6 oz pur e alcohol) 1/week to 1/month PHQ-2 Answer Date Recorded PHQ-2 Score 2 01/26/2019 Sex and Gender Information Value Date Recorded Sex Assigned at Female 05/03/2020 6:11 PM SCHOOL TRANSPORTATION DIRECTOR Gender Identity Female 05/03/2020 6:11 PM SCHOOL TRANSPORTATION DIRECTOR Sexual Orientation Straight 05/03/2020 6: 11 PM SCHOOL TRANSPORTATION DIRECTOR documented as of this encounter Miscellaneous Notes * Telephone Encounter - Domonique Crump RN - 04/08/2019 10:54 AM CST Medication request: Depression medication Office visit 01/25 - Luis Depression flaring with home stressors. Recommend she continue on prozac at 20 mg. Discussed we could add wellbutrin, pt declined at this time. Recommend she f/u in 1 months for PHQ. Academic Affairs Specialist encouraged office visit or e-visit for prescription request via [employer] OL TRANSPORTATION DIRECTOR documented in this encounter Plan of Treatment Upcoming Encounters Date Type Department Care Team (Late st Contact Info) Description 10/09/2023 1:00 PM CDT Office Visit [facility] [address] [place] [phone] Kim Frankel APRN REED DIPPER [address] [place] [address] documented as of this encounter Visit Diagnoses Not on filedocumented in this encounter Additional Health Concerns Infection Onset Date Last Indicated Resolved Time Rule Out C-difficile 01/22/2023 01/24/2023 023 4:38 PM CDT Assessment Noted Time PHQ-9 Depression Total Score: 12 019 3:15 PM CDT documented as of this encounter Care Teams Customer Solutions Supervisor Relationship Specialty Start Date End Date Feli Smith APRN REED DIPPER [address] [place] [address] PCP - General Nurse Practitioner 02/19/18 05/08/21 Trish Mendoza MD [address] [place] [address] PCP - General Family Medicine 05/24/21 01/14/23 Kim Frankel APRN REED DIPPER [address] [place] [address] PCP - General Nurse Practitioner Primary Care 01/15/23 Feli Smith APRN REED DIPPER [facility] [place] [address] Assigned PCP 02/06/19 03/23/21 Feli Holguin MD [address] [address] Assigned OBGYN Provider 08/19/20 02/14/22 Lakia Lima REED DIPPER [address] [place] [address] Assigned PCP 03/24/21 06/01/21 Trish Mendoza MD [facility] [address] [address] Assigned PCP 06/02/21 11/21/22 Kim Frankel APRN REED DIPPER [address] [place] [address] Assigned PCP 11/22/22 Kim Frankel APRN REED DIPPER [address] [place] [address] Assigned Pain Medication Provider 01/17/23 04/22/23 Mitra Reaves APRN REED DIPPER [address] [place] [address], [facility] [address] [place] [address] Assigned Surgical Provider 04/23/23 documented as of this encounter
== END 2023-09-13 00:47 | disposition home or self-care (01) ==
LOC: ED 09-13 00:46
PROVIDERS: Emergency Provider Internal Medicine
DX: M79.672 Pain in left foot (principal)
CPT/HCPCS: 73630; 99283